=== PATIENT | male | born 1960 | race Caucasian/White ===

== ENCOUNTER 2017-10-20 17:30 | Emergency (ER) | payer OTHER ==
[~2017-10-20] VITALS: Ht 185.4 cm; Wt 77.1 kg
[~2017-10-20 17:30] MED LIST: AMLO5 PO; ASPI81CH PO; Cetirizine HCl10 MG PO; DULO60 PO; GABA300 PO; INSULANPEN SC; Lantus100 UNIT/1 SC; Lovastatin20 MG PO; Mobic15 MG PO; PIOG30 PO; Triamterene W/1 EACH PO; Zestril40 MG PO
[2017-10-20 18:00] LABS: Calcium, Ionized (POC) 1.27 mmol/L (1.10-1.46); Chloride (POC) 92 mmol/L (98-108); Creatinine (POC) 1.3 mg/dL (0.8-1.3); Glucose (ISTAT POC) 246 mg/dL (70-99); Potassium (POC) 4.9 mmol/L (3.5-5.5); Sodium (POC) 132 mmol/L (135-148); Total CO2 (POC) 30 mmol/L (21-32)
[2017-10-20 18:08] LABS: BASOPHILS ABSOLUTE AUTO 0.03 K/mm3 (0.00-0.23); BASOPHILS PERCENT AUTO 0 % (0-2); EOSINOPHILS ABSOLUTE AUTO 0.03 K/mm3 (0.00-0.68); EOSINOPHILS PERCENT AUTO 0 % (0-6); Hematocrit 41.7 % (37.0-53.0); Hemoglobin 13.7 g/dL (13.5-17.5); IMMATURE GRAN ABSOLUTE AUTO 0.04 K/mm3 (0.00-0.10); IMMATURE GRAN PERCENT AUTO 1 % (0-1); LYMPHOCYTES ABSOLUTE AUTO 1.66 K/mm3 (0.84-5.20); LYMPHOCYTES PERCENT AUTO 21 % (21-46); MONOCYTES ABSOLUTE AUTO 0.43 K/mm3 (0.16-1.47); MONOCYTES PERCENT AUTO 5 % (4-13); Mean Corpuscular HGB 31.7 pg (26.0-34.0); Mean Corpuscular HGB Conc 32.9 g/dL (31.5-36.5); Mean Corpuscular Volume 97 fL (80-100); Mean Platelet Volume 10.4 fL (9.1-12.4); NEUTROPHILS ABSOLUTE AUTO 5.89 K/mm3 (1.96-9.15); NEUTROPHILS PERCENT AUTO 73 % (41-73); Platelet Count 242 K/mm3 (150-400); RDW Coefficient Variation 13.1 % (11.7-14.2); RDW Standard Deviation 46.7 fL (35.1-46.3); Red Blood Cell Count 4.32 M/mm3 (4.30-5.90); White Blood Cell Count 8.08 K/mm3 (4.00-11.30)
[2017-10-20 18:29] LABS: Alanine Aminotransfer (ALT/SGP 28 U/L (12-78); Albumin, Blood 3.6 g/dL (3.4-5.0); Albumin/Globulin Ratio 0.9 (0.8-1.8); Alk Phos 70 U/L (50-136); Anion Gap 9 mmol/L (6-16); Aspartate Aminotrans (AST/SGOT 28 U/L (12-37); Bilirubin, Total 0.3 mg/dL (0.1-1.0); Blood Urea Nitrogen 37 mg/dL (8-24); Bun/Creatinine Ratio 32.5 (12.0-20.0); CO2, Blood 25 mmol/L (21-32); Calcium, Blood 9.5 mg/dL (8.5-10.1); Chloride, Blood 97 mmol/L (98-108); Creatinine, Blood 1.14 mg/dL (0.60-1.20); Ethanol (Alcohol), Blood, Med 53 mg/dL; Globulin, Blood 4.2 g/dL (2.2-4.0); Glomerular Filtration Rate >60 (60-); Glucose, Blood 239 mg/dL (70-99); Sodium, Blood 131 mmol/L (136-145); Total Protein, Blood 7.8 g/dL (6.4-8.2)
== END 2017-10-20 20:30 | disposition home or self-care (01) ==
LOC: ER 17:30
PROVIDERS: Emergency Medicine
DX: E09.649 Drug or chemical induced diabetes mellitus with hypoglycemia without coma (principal); T38.3X5A Adverse effect of insulin and oral hypoglycemic [antidiabetic] drugs, initial encounter; I10 Essential (primary) hypertension; Z91.14 Patient's other noncompliance with medication regimen; Z79.899 Other long term (current) drug therapy; Z79.82 Long term (current) use of aspirin; Z79.4 Long term (current) use of insulin
CPT/HCPCS: 71046; 80047; 80053; 82947; 85014; 85025; 93005; 93010; 96374; 99283; G0480

== ENCOUNTER → 2019-01-29 | Outpatient (CLI) | payer OTHER ==
[~2019-01-29] MED LIST changes: +ADMELOG SO100 UNIT/1 SC; +Aspirin EC81 MG PO; +HYDCHL12.5 PO; +LOSA50 PO; +MICROZIDE12.5 MG PO; +PIOG45 PO; +ROSU10TA PO
[2019-01-29 11:39] LABS: BASOPHILS ABSOLUTE AUTO 0.05 K/mm3 (0.00-0.23); BASOPHILS PERCENT AUTO 1 % (0-2); EOSINOPHILS ABSOLUTE AUTO 0.07 K/mm3 (0.00-0.68); EOSINOPHILS PERCENT AUTO 1 % (0-6); Hemoglobin 12.4 g/dL (13.5-17.5); IMMATURE GRAN ABSOLUTE AUTO 0.02 K/mm3 (0.00-0.10); IMMATURE GRAN PERCENT AUTO 0 % (0-1); LYMPHOCYTES ABSOLUTE AUTO 1.92 K/mm3 (0.84-5.20); LYMPHOCYTES PERCENT AUTO 33 % (21-46); MONOCYTES ABSOLUTE AUTO 0.55 K/mm3 (0.16-1.47); MONOCYTES PERCENT AUTO 9 % (4-13); Mean Corpuscular HGB 30.3 pg (26.0-34.0); Mean Corpuscular HGB Conc 33.5 g/dL (31.5-36.5); Mean Corpuscular Volume 91 fL (80-100); Mean Platelet Volume 9.7 fL (9.1-12.4); NEUTROPHILS ABSOLUTE AUTO 3.27 K/mm3 (1.96-9.15); NEUTROPHILS PERCENT AUTO 56 % (41-73); Platelet Count 291 K/mm3 (150-400); RDW Coefficient Variation 13.9 % (11.7-14.2); RDW Standard Deviation 45.9 fL (35.1-46.3); Red Blood Cell Count 4.09 M/mm3 (4.30-5.90); White Blood Cell Count 5.88 K/mm3 (4.00-11.30)
[2019-01-29 11:44] LABS: Bun/Creatinine Ratio 19.9 (12.0-20.0); Calcium, Blood 9.4 mg/dL (8.5-10.1); Creatinine, Blood 1.91 mg/dL (0.60-1.20)
== END | disposition home or self-care (01) ==
LOC: LAB SHORT 11:34 → LAB EV 11:34
PROVIDERS: Family Medicine
DX: E10.65 Type 1 diabetes mellitus with hyperglycemia (principal)
CPT/HCPCS: 80048; 85025

== ENCOUNTER 2019-02-15 13:09 | Day surgery (SDC) | payer OTHER ==
[~2019-02-15] VITALS: Ht 185.4 cm; Wt 70.7 kg
[~2019-02-15 13:09] MED LIST changes: -MICROZIDE12.5 MG PO
--- NOTE | 2019-02-15 15:50 | NUR ---
02/15/19 1550 Julia Ricketts 257 @ 1415. NOTIFIED, NO ORDERS AT THIS TIME.
--- NOTE | 2019-02-15 16:01 | NUR ---
02/15/19 1601 Julia Ricketts SIMETHICONE USED DURING PROCEDURE.
== END 2019-02-15 17:01 | disposition home or self-care (01) ==
LOC: ORSCSDS 13:09
PROVIDERS: Student in an Organized Health Care Education/Training Program
PROC: 0DB68ZX Excision of Stomach, Via Natural or Artificial Opening Endoscopic, Diagnostic (ICD-10-PCS; principal; 2019-02-15 14:45)
PROC: 0DBN8ZX Excision of Sigmoid Colon, Via Natural or Artificial Opening Endoscopic, Diagnostic (ICD-10-PCS; principal; 2019-02-15 14:45)
PROC: 0DB88ZX Excision of Small Intestine, Via Natural or Artificial Opening Endoscopic, Diagnostic (ICD-10-PCS; principal; 2019-02-15 14:45)
PROC: 0DBL8ZX Excision of Transverse Colon, Via Natural or Artificial Opening Endoscopic, Diagnostic (ICD-10-PCS; principal; 2019-02-15 14:45)
PROC: 0DBM8ZX Excision of Descending Colon, Via Natural or Artificial Opening Endoscopic, Diagnostic (ICD-10-PCS; principal; 2019-02-15 14:45)
PROC: 0DB48ZX Excision of Esophagogastric Junction, Via Natural or Artificial Opening Endoscopic, Diagnostic (ICD-10-PCS; principal; 2019-02-15 14:45)
PROC: 0DB58ZX Excision of Esophagus, Via Natural or Artificial Opening Endoscopic, Diagnostic (ICD-10-PCS; principal; 2019-02-15 14:45)
PROC: 0DBH8ZX Excision of Cecum, Via Natural or Artificial Opening Endoscopic, Diagnostic (ICD-10-PCS; principal; 2019-02-15 14:45)
DX: Z12.11 Encounter for screening for malignant neoplasm of colon (principal); K63.5 Polyp of colon; D12.0 Benign neoplasm of cecum; D12.4 Benign neoplasm of descending colon; R10.13 Epigastric pain; R93.3 Abnormal findings on diagnostic imaging of other parts of digestive tract; K29.70 Gastritis, unspecified, without bleeding; K64.8 Other hemorrhoids; E11.9 Type 2 diabetes mellitus without complications; I10 Essential (primary) hypertension; I73.9 Peripheral vascular disease, unspecified; F32.9 Major depressive disorder, single episode, unspecified; Z87.891 Personal history of nicotine dependence; Z79.82 Long term (current) use of aspirin; Z79.899 Other long term (current) drug therapy
CPT/HCPCS: 82947; 88305; 88312; 88342; J2704; J7120

== ENCOUNTER 2019-02-25 08:54 | Emergency (ER) | payer OTHER ==
[~2019-02-25] VITALS: Ht 185.4 cm; Wt 73.9 kg
== END 2019-02-25 10:50 | disposition home or self-care (01) ==
LOC: ER 08:54
DX: E11.649 Type 2 diabetes mellitus with hypoglycemia without coma (principal); E11.40 Type 2 diabetes mellitus with diabetic neuropathy, unspecified; Z91.14 Patient's other noncompliance with medication regimen; I10 Essential (primary) hypertension; Z88.8 Allergy status to other drugs, medicaments and biological substances; Z79.4 Long term (current) use of insulin; Z79.82 Long term (current) use of aspirin; Z79.899 Other long term (current) drug therapy
CPT/HCPCS: 82947; 99283

== ENCOUNTER 2019-04-15 06:38 | Day surgery (SDC) | payer OTHER ==
[~2019-04-15] VITALS: Ht 185.4 cm; Wt 73.2 kg
[2019-04-15] MEDS ORDERED: Mobic15 MG PO (07:04)
[2019-04-15] MEDS ORDERED: MICROZIDE12.5 MG PO (07:05)
[2019-04-15 07:55] LABS: BASOPHILS ABSOLUTE AUTO 0.04 K/mm3 (0.00-0.23); BASOPHILS PERCENT AUTO 1 % (0-2); EOSINOPHILS ABSOLUTE AUTO 0.08 K/mm3 (0.00-0.68); EOSINOPHILS PERCENT AUTO 1 % (0-6); Hematocrit 38.3 % (37.0-53.0); Hemoglobin 12.7 g/dL (13.5-17.5); IMMATURE GRAN ABSOLUTE AUTO 0.03 K/mm3 (0.00-0.10); IMMATURE GRAN PERCENT AUTO 0 % (0-1); LYMPHOCYTES ABSOLUTE AUTO 1.83 K/mm3 (0.84-5.20); LYMPHOCYTES PERCENT AUTO 23 % (21-46); MONOCYTES ABSOLUTE AUTO 0.61 K/mm3 (0.16-1.47); MONOCYTES PERCENT AUTO 8 % (4-13); Mean Corpuscular HGB 30.4 pg (26.0-34.0); Mean Corpuscular HGB Conc 33.2 g/dL (31.5-36.5); Mean Corpuscular Volume 92 fL (80-100); Mean Platelet Volume 10.3 fL (9.1-12.4); NEUTROPHILS ABSOLUTE AUTO 5.48 K/mm3 (1.96-9.15); NEUTROPHILS PERCENT AUTO 68 % (41-73); Platelet Count 304 K/mm3 (150-400); RDW Coefficient Variation 14.5 % (11.7-14.2); Red Blood Cell Count 4.18 M/mm3 (4.30-5.90); White Blood Cell Count 8.07 K/mm3 (4.00-11.30)
[2019-04-15 08:27] LABS: Anion Gap 6 mmol/L (6-16); Blood Urea Nitrogen 29 mg/dL (8-24); Bun/Creatinine Ratio 28.2 (12.0-20.0); CO2, Blood 30 mmol/L (21-32); Calcium, Blood 9.6 mg/dL (8.5-10.1); Chloride, Blood 98 mmol/L (98-108); Creatinine, Blood 1.03 mg/dL (0.60-1.20); Glomerular Filtration Rate >60 (60-); Glucose, Blood 399 mg/dL (70-99); Potassium, Blood 4.3 mmol/L (3.5-5.5); Sodium, Blood 134 mmol/L (136-145)
--- NOTE | 2019-04-15 11:20 | NUR ---
PT BACK TO RECOVERY ROOM POST PROCEDURE. SLEEPING, BUT ROUSES EASILY TO VERBAL STIMULI. BILATERAL GROIN SITES WITH TEGADERM DRESSINGS. RIGHT GROIN SITE WITH SMALL AMOUNT OF SWELLING NOTED, PER RT, PT HAD SMALL HEMATOMA DURING PROCEDURE, BUT HAS SINCE BEEN REDUCED. SWELLING IS SOFT AND NON TENDER. NO BLEEDING NOTED AT EITHER GROIN SITE. LEFT GROIN IS SOFT AND NON-TENDER.
--- NOTE | 2019-04-15 12:21 | NUR ---
Pt w/ fbs 246 orders received pt still sleeping will tx when pt starts to eat.
--- NOTE | 2019-04-15 13:01 | NUR ---
Pt given his fentanyl with good pain relief, pt also eating, insulin 4 units given for fbs of 246. Pain from 5 to 1 lower back pain.
--- NOTE | 2019-04-15 13:57 | NUR ---
Pt took his medications for blood pressure. Elevated b/p. Dr. Brito notified.
--- NOTE | 2019-04-15 14:52 | NUR ---
Dr. NAQVI HERE talking to patient regarding his findings. Pt verbalizes understand to see PCP and see about getting a change in antidepressant. Pt also given information regarding [facility] and [facility] information. Pt has elevated b/p he has taken his home medications. Slight pain in left groin site's bilaterally without hematoma or bleeding.
--- NOTE | 2019-04-15 14:59 | NUR ---
IV removed left ac cath intact.
== END 2019-04-15 23:58 | disposition home or self-care (01) ==
LOC: MHTC 06:38
PROVIDERS: Radiology Diagnostic Radiology
DX: I70.213 Atherosclerosis of native arteries of extremities with intermittent claudication, bilateral legs (principal)
CPT/HCPCS: 36200; 37229; 37232; 75625; 75716; 76937; 80048; 82947; 85025; 85347; 99152; 99153; C1714; C1725; C1769; C1887; C1894; J1644; J1815; J2250; J3010; J7030; Q9967

== ENCOUNTER 2019-12-10 01:31 | Day surgery (SDC) | payer OTHER ==
[~2019-12-10 01:31] MED LIST changes: +MICROZIDE12.5 MG PO
== END 2019-12-10 22:43 | disposition home or self-care (01) ==
LOC: WOUND 01:31
DX: E11.621 Type 2 diabetes mellitus with foot ulcer (principal); L03.032 Cellulitis of left toe; I10 Essential (primary) hypertension; L97.522 Non-pressure chronic ulcer of other part of left foot with fat layer exposed; Z87.891 Personal history of nicotine dependence; Z88.8 Allergy status to other drugs, medicaments and biological substances; Z79.4 Long term (current) use of insulin; Z79.899 Other long term (current) drug therapy
CPT/HCPCS: 87071; 87075; 87077; 87147; 87186; 87205; G0463

== ENCOUNTER 2019-12-16 12:08 | Day surgery (SDC) | payer OTHER ==
[~2019-12-16 12:08] MED LIST changes: -ADMELOG SO100 UNIT/1 SC; -Aspirin EC81 MG PO; -DULO60 PO; -GABA300 PO; -INSULANPEN SC; -LOSA50 PO; -MICROZIDE12.5 MG PO; -PIOG45 PO; -ROSU10TA PO
[2019-12-22] MEDS ORDERED: ADMELOG SO100 UNIT/2 SC (15:52)
== END 2019-12-16 22:56 | disposition home or self-care (01) ==
LOC: WOUND 12:08
DX: E11.621 Type 2 diabetes mellitus with foot ulcer (principal); L97.522 Non-pressure chronic ulcer of other part of left foot with fat layer exposed; L03.032 Cellulitis of left toe; I10 Essential (primary) hypertension
CPT/HCPCS: 85025; 85651; 96365; J0696

== ENCOUNTER 2019-12-31 08:45 | Inpatient (IN) | payer OTHER ==
[~2019-12-31] VITALS: Ht 185.4 cm; Wt 65.8 kg
[~2019-12-31 08:45] MED LIST changes: +ADMELOG SO100 UNIT/2 SC
[2019-12-31] MEDS ORDERED: AMOCLA875 PO (12:56)
[2019-12-31] MEDS ORDERED: BASAGLAR K100 UNIT/1 SC ×2 (12:57)
[2019-12-31] MEDS ORDERED: GABA300 PO (12:58)
[2019-12-31] MEDS ORDERED: DULO60 PO (12:58)
[2019-12-31] MEDS ORDERED: HYDR10 PO (12:58)
[2019-12-31] MEDS ORDERED: Mobic15 MG PO (12:59)
[2019-12-31] MEDS ORDERED: PIOG45 PO (12:59)
[2019-12-31] MEDS ORDERED: ROSU10TA PO (13:00)
[2019-12-31] MEDS ORDERED: MICROZIDE12.5 MG PO (13:00)
[2019-12-31] MEDS ORDERED: TAMS.4ER PO (13:00)
[2019-12-31] MEDS ORDERED: Aspirin EC81 MG PO (13:00)
[2019-12-31] MEDS ORDERED: HUMALOG KW100 UNIT/1 SC (13:00)
[2019-12-31] MEDS ORDERED: LOSA50 PO (13:00)
[2019-12-31] MEDS ORDERED: CENTRUM SILVER1 EAC2 PO (13:01)
[2019-12-31] MEDS ORDERED: ACET325 PO (13:01)
[2019-12-31] MEDS ORDERED: TRAM50 PO (13:01)
[2019-12-31] MEDS ORDERED: PROBIOTIC1 EA13 PO (13:02)
[2019-12-31] MEDS ORDERED: ONDA4ODT SL (13:02)
[2019-12-31 15:47] LABS: BASOPHILS ABSOLUTE AUTO 0.07 K/mm3 (0.00-0.23); BASOPHILS PERCENT AUTO 1 % (0-2); EOSINOPHILS ABSOLUTE AUTO 0.14 K/mm3 (0.00-0.68); EOSINOPHILS PERCENT AUTO 1 % (0-6); Hematocrit 28.1 % (37.0-53.0); Hemoglobin 8.7 g/dL (13.5-17.5); IMMATURE GRAN ABSOLUTE AUTO 0.03 K/mm3 (0.00-0.10); IMMATURE GRAN PERCENT AUTO 0 % (0-1); LYMPHOCYTES ABSOLUTE AUTO 1.82 K/mm3 (0.84-5.20); LYMPHOCYTES PERCENT AUTO 18 % (21-46); MONOCYTES PERCENT AUTO 8 % (4-13); Mean Corpuscular HGB 29.2 pg (26.0-34.0); Mean Corpuscular Volume 94 fL (80-100); Mean Platelet Volume 9.4 fL (9.1-12.4); NEUTROPHILS ABSOLUTE AUTO 7.15 K/mm3 (1.96-9.15); NEUTROPHILS PERCENT AUTO 71 % (41-73); Platelet Count 476 K/mm3 (150-400); RDW Coefficient Variation 14.6 % (11.7-14.2); RDW Standard Deviation 51.2 fL (35.1-46.3); Red Blood Cell Count 2.98 M/mm3 (4.30-5.90); White Blood Cell Count 10.01 K/mm3 (4.00-11.30)
[2019-12-31 16:04] LABS: Alanine Aminotransfer (ALT/SGP 28 U/L (12-78); Albumin, Blood 2.3 g/dL (3.4-5.0); Albumin/Globulin Ratio 0.5 (0.8-1.8); Alk Phos 111 U/L (50-136); Anion Gap 4 mmol/L (6-16); Aspartate Aminotrans (AST/SGOT 18 U/L (12-37); Bilirubin, Total 0.1 mg/dL (0.1-1.0); Blood Urea Nitrogen 33 mg/dL (8-24); CO2, Blood 31 mmol/L (21-32); Chloride, Blood 104 mmol/L (98-108); Creatinine, Blood 1.22 mg/dL (0.60-1.20); Globulin, Blood 4.2 g/dL (2.2-4.0); Glomerular Filtration Rate >60 (60-); Glucose, Blood 349 mg/dL (70-99); Potassium, Blood 4.9 mmol/L (3.5-5.5); Sodium, Blood 139 mmol/L (136-145); Total Protein, Blood 6.5 g/dL (6.4-8.2)
[2019-12-31 16:58] LABS: Source, Urine Clean Catch
[2019-12-31 17:01] LABS: Bilirubin, Urine Neg (Neg); Blood, Urine Neg (Neg); Glucose Qualitative, Urine 4+ (Neg); Ketones, Urine Neg (Neg); Leukocyte Esterase, Urine Neg (Neg); Nitrite, Urine Neg (Neg); Protein, Urine 2+ (Neg); Specific Gravity, Urine 1.015 (1.003-1.022); Urobilinogen, Urine NORM (Normal)
[2019-12-31 17:14] LABS: Appearance, Urine Clear (Clear); Color, Urine Yellow (P-Yellow); Red Blood Cells, Urine 0-2 /hpf (0-2); White Blood Cells, Urine Not Seen /hpf (0-5)
[2019-12-31 17:15] LABS: Bacteria Not Seen /hpf; Squamous Epithelial Cells Not Seen /hpf (Few)
--- NOTE | 2019-12-31 23:19 | NUR ---
PHONE CALL TO KEYONNA REGARDING CBG 378 WITH LANTUS 10 UNITS GIVEN.NO HS COVERAGE.ALSO PT C/O TRAMADOL AND SUBLIMAZE 12.5MCG INEFFECTIVE FOR PAIN CONTROL.KEYONNA ORDERED SUBLIMAZE DOSE INCREASED TO 25 MCG.NO CHANGE OF ORDERS REGARDING CBG.
[2020-01-01 03:55] LABS: Hematocrit 25.8 % (37.0-53.0); Hemoglobin 8.2 g/dL (13.5-17.5); Mean Corpuscular HGB 29.8 pg (26.0-34.0); Mean Corpuscular HGB Conc 31.8 g/dL (31.5-36.5); Mean Corpuscular Volume 94 fL (80-100); Mean Platelet Volume 9.1 fL (9.1-12.4); Platelet Count 428 K/mm3 (150-400); RDW Coefficient Variation 14.6 % (11.7-14.2); RDW Standard Deviation 49.3 fL (35.1-46.3); Red Blood Cell Count 2.75 M/mm3 (4.30-5.90); White Blood Cell Count 9.42 K/mm3 (4.00-11.30)
[2020-01-01 04:11] LABS: Anion Gap 2 mmol/L (6-16); Blood Urea Nitrogen 27 mg/dL (8-24); Bun/Creatinine Ratio 24.1 (12.0-20.0); CO2, Blood 33 mmol/L (21-32); Calcium, Blood 7.9 mg/dL (8.5-10.1); Chloride, Blood 103 mmol/L (98-108); Creatinine, Blood 1.12 mg/dL (0.60-1.20); Glomerular Filtration Rate >60 (60-); Glucose, Blood 205 mg/dL (70-99); Potassium, Blood 4.4 mmol/L (3.5-5.5); Sodium, Blood 138 mmol/L (136-145)
--- NOTE | 2020-01-01 06:59 | NUR ---
SUMMARY PT SLEPT OFF AND ON. REPORTS PAIN CONTROL IMPROVED WITH INCREASE IN SUBLIMAZE DOSE.
--- NOTE | 2020-01-01 09:08 | NUR ---
MEDICATED FOR PAIN, PT EATING BREAKFAST, TOLERATING WELL, SONALI WRAP TO LLE C/D/I, RLE W/ SONALI WRAP C/D/I, REPORTS HAVING NUMBNESS AND TINGLING ON BLE'S BUT NOT MORE THAN USUAL, REPORTS HAVING HX OF NEUROPATHY, MONITOR FOR ANY CHANGES, ASSESS FOR PAIN AND MEDICATE PRN.
--- NOTE | 2020-01-01 16:00 | NUR ---
TOLERATING PRBC TRANSFUSION WELL, LUNGS CLEAR, REPORTS PAIN IS TOLERABLE AT THIS TIME, 2ND PRBC TRANSFUSION CURRENTLY INFUSING.
--- NOTE | 2020-01-01 17:35 | NUR ---
VSS, PAIN TOLERABLE AT THIS TIME, HEELS FLOATED, REPOSITIONED IN BED, L FOOT DSG CHANGED BY DR. DUVAL TODAY, NO ACUTE CHANGES THIS SHIFT.
[2020-01-01 19:03] LABS: Hematocrit 31.1 % (37.0-53.0); Hemoglobin 9.9 g/dL (13.5-17.5)
--- NOTE | 2020-01-02 05:49 | NUR ---
SHIFT SUMMARY AA0X4. PT MEDICATED FOR PAIN X2. PT ABLE TO TRANSFER TO BS WITH MINIMAL ASSIST TO VOID. 1 BM. NPO SINCE MIDNIGHT PER ORDERS. PLAN IS FOR SURGERY TODAY. PT STATES HE IS LOOKING FORWARD TO GETTING HIS SURGERIES DONE.
--- NOTE | 2020-01-02 07:17 | NUR ---
PT TAKEN TO OR.
--- NOTE | 2020-01-02 12:18 | NUR ---
ARRIVED FROM PACU, S/P ORIF OF R TIBIAL PLATEAU AND L GREAT TOE AMPUTATION, PT IS DROWSY BUT A&O X3, DENIES ANY PAIN ON L FOOT, REPORTS HAVING "SOME" PAIN ON RLE, DACIA DSG AND SONALI WRAP NOTED ON RLE, C/D/I, SONALI AND GAUZE WRAP ON L FOOT C/D/I, DENIES ANY NAUSEA OR ANY NEW NUMBNESS OR TINGLING, CONT. TO MONITOR FOR ANY CHANGES, MEDICATE FOR PAIN ORDERED, ASSIST PRN.
--- NOTE | 2020-01-02 17:34 | NUR ---
summary RATES PAIN AT 3/10 AFTER FENTANYL GIVEN, PO PAIN MEDS CHANGED TO NORCO, HYPERTENSIVE POST OP, PT'S AM MEDS GIVEN POST OP AND PRN HYDRALAZINE, BP NOTED TRENDING DOWN, DENIES ANY OTHER DISCOMFORT, DSGS ON BLE'S C/D/I, VOIDED 1100CC'S POST OP, PT USING IS DIRECTED, NO ACUTE CHANGES THIS SHIFT.
[2020-01-03 04:20] LABS: BASOPHILS ABSOLUTE AUTO 0.03 K/mm3 (0.00-0.23); BASOPHILS PERCENT AUTO 0 % (0-2); EOSINOPHILS PERCENT AUTO 0 % (0-6); Hematocrit 28.9 % (37.0-53.0); Hemoglobin 9.4 g/dL (13.5-17.5); IMMATURE GRAN ABSOLUTE AUTO 0.04 K/mm3 (0.00-0.10); IMMATURE GRAN PERCENT AUTO 0 % (0-1); LYMPHOCYTES ABSOLUTE AUTO 2.24 K/mm3 (0.84-5.20); LYMPHOCYTES PERCENT AUTO 18 % (21-46); MONOCYTES ABSOLUTE AUTO 1.19 K/mm3 (0.16-1.47); MONOCYTES PERCENT AUTO 10 % (4-13); Mean Corpuscular HGB 29.4 pg (26.0-34.0); Mean Corpuscular HGB Conc 32.5 g/dL (31.5-36.5); Mean Corpuscular Volume 90 fL (80-100); Mean Platelet Volume 9.1 fL (9.1-12.4); NEUTROPHILS ABSOLUTE AUTO 8.86 K/mm3 (1.96-9.15); NEUTROPHILS PERCENT AUTO 72 % (41-73); Platelet Count 347 K/mm3 (150-400); RDW Coefficient Variation 14.6 % (11.7-14.2); RDW Standard Deviation 47.9 fL (35.1-46.3); White Blood Cell Count 12.36 K/mm3 (4.00-11.30)
[2020-01-03 04:41] LABS: Alanine Aminotransfer (ALT/SGP 20 U/L (12-78); Albumin/Globulin Ratio 0.5 (0.8-1.8); Alk Phos 76 U/L (50-136); Anion Gap 1 mmol/L (6-16); Aspartate Aminotrans (AST/SGOT 19 U/L (12-37); Bilirubin, Total 0.2 mg/dL (0.1-1.0); Blood Urea Nitrogen 20 mg/dL (8-24); Bun/Creatinine Ratio 22.1 (12.0-20.0); CO2, Blood 32 mmol/L (21-32); Calcium, Blood 8.3 mg/dL (8.5-10.1); Chloride, Blood 102 mmol/L (98-108); Creatinine, Blood 0.91 mg/dL (0.60-1.20); Globulin, Blood 3.9 g/dL (2.2-4.0); Glomerular Filtration Rate >60 (60-); Glucose, Blood 195 mg/dL (70-99); Potassium, Blood 4.2 mmol/L (3.5-5.5); Sodium, Blood 135 mmol/L (136-145); Total Protein, Blood 5.9 g/dL (6.4-8.2)
--- NOTE | 2020-01-03 05:47 | NUR ---
SHIFT SUMMARY LYING IN SEMI FOWLERS WITH EYES CLOSED. HAS RESTED WELL THIS SHIFT. DRESSINGS TO BLE ARE C/D/I. PT TO WORK WITH PT TODAY, RLE IS NON WEIGHT BEARING. PAIN MEDS GIVEN X3 THIS SHIFT, TOLERATED WELL. SAFETY MEASURES IN PLACE. WILL CONTINUE TO MONITOR AND GIVE HAND OFF TO ONCOMING SHIFT USING SBAR.
--- NOTE | 2020-01-03 11:06 | NUR ---
01/03/20 1106 Priya Richardson VERIFICATIONS: EDIT CHART.
--- NOTE | 2020-01-03 17:31 | NUR ---
SHIFT SUMMARY PT DID WELL TODAY WITH THERAPY. x 1 FOR IV BREAKTHRU PAIN. EATING, DRINKING, VOIDING WELL.
--- NOTE | 2020-01-04 04:05 | NUR ---
SHIFT SUMMARY: PT POD#2 FOR ORIF OF R ANKLE AND L GREAT TOE AMPUTATION. ALL DRESSINGS CDI. RLE ELEVATED WITH ICE PACK IN PLACE. PAIN MANAGED WITH 2 NORCO AND FENTANYL FOR BREAKTHROUGH. RATING PAIN 3/10 ON PAIN SCALE. VOIDING IN URINAL AT BEDSIDE. GRACIELA PO. NO CONCERNS AT THIS TIME.
--- NOTE | 2020-01-04 18:06 | NUR ---
SHIFT SUMMARY PT HAS DONE VERY WELL. UP IN CHAIR. PAIN WELL MANAGED. VOIDING, EATING, DRINKING.
--- NOTE | 2020-01-05 06:09 | NUR ---
SHIFT SUMMARY: PT POD #3 FOR ORIF TO RLE AND AMPUTATION TO L GREAT TOE. DRESSINGS TO BLE C/D/I. PT MEDICATED TWICE THIS SHIFT WITH PO PAIN MEDS PER EMAR. PT OUT OF BED TO BSC WITH ONE MINIMAL ASSIST. NWB TO RLE. WBAT TO LLE WITH BOOT. BOTH EXTREMITIES ELEVATED. USING ICE PACK INTERMITTENTLY. PT GRACIEAL ACTIVITY WELL. BM X1 THIS SHIFT. VOIDING WELL USING URINAL. CURRENTLY RESTING. AWAITING DISCHARGE PLAN.
--- NOTE | 2020-01-05 16:02 | NUR ---
SHIFT SUMMARY PT HAS DONE WELL TODAY. PAIN WELL CONTROLLED. INCREASING STRENGTH SLOWLY.
--- NOTE | 2020-01-06 07:18 | NUR ---
POD 4 S/P ORIF OF RLE AND LEFT GREAT TOE AMPUTATION. PT HAD NO SIG CHANGES T/O NIGHT, DRESSINGS CDI. PT STATES N/T AT BASELINE, PT DID REQ BREAKTHROUGH PAIN MED X1. PT DOING ROM EXERCISES WHILE IN BED, IS USING CALL LIGHT FOR ASSISTANCE. REP GIVEN TO DAY RN.
--- NOTE | 2020-01-06 08:15 | NUR ---
PT HAS AN ELEVATED BLOOD PRESSURE THIS MORNING. AM BP MEDICATIONS HAVE BEEN GIVEN. WILL CHECK BP AGAIN IN APPROXIMATELY 1 HOUR. PT IS ASYMPTOMATIC OF ELEVATED BP AT THIS TIME.
--- NOTE | 2020-01-06 18:49 | NUR ---
SHIFT SUMMARY PAIN HAS BEEN MANAGED WITH PO PAIN MEDICATION THIS SHIFT. PT IS A 1 PERSON ASSIST WITH GAIT BELT AND WALKER. PT IS TOLERATING PO. PAIN MANAGED WITH NORCO. VSS. WILL MONITOR UNTIL REPORT TO ONCOMING RN.
--- NOTE | 2020-01-07 06:39 | NUR ---
POD 5 S/P ROIF OF RLE AND LEFT GREAT TOE AMP. PT VSS T/O NIGHT. DRESSINGS CDI. LEFT TOE DRESSING CHANGED X1, SUTURES INTACT, NO REDNESS/SWELLING NOTED. PT UP OOB TO BATHROOM W/FWW+ORTHO SHOE, MAINTAINED NWB ON RLE, GRACIELA WELL. PT REP N/T AT BASELINE, CAP REFILL WNL. PT USING CALL LIGHT FOR ASSISTANCE, WILL CONT TO MONITOR UNTIL REP GIVEN TO ONCOMING RN.
--- NOTE | 2020-01-07 17:53 | NUR ---
SUMMARY PT REPORTS PAIN IS BETTER CONTROLLED THIS AFTERNOON. PT TEARFUL AT TIMES AND STATES HE IS FEARFUL OF NOT BEING ABLE TO WALK. DISCUSSED WITH PATIENT NEED TO BE NWB AT THIS TIME TO ALLOW BONES TO MEND AND THEN WILL BE ABLE TO RESUME AMBULATING. LEFT GREAT TOE DRESSING CLEAN, DRY AND INTACT
--- NOTE | 2020-01-08 04:40 | NUR ---
POD 6 S/P RIGHT TIB PLAT ORIF AND LEFT 1ST GREAT TOE AMP. BUT DID GREAT DURING NIGHT. SLEPT MOST OF SHIFT. PAIN WAS MANAGED WELL. KEPT BLE ELEVATED. PT ABLE TO REPOSITION SELF IN BED. DRESSINGS ARE CDI, GOOD CIRC CHECKS. CALL LIGHT IN REACH.
--- NOTE | 2020-01-08 16:39 | NUR ---
SHIFT SUMMARY PT A&OX4, VSS, POD6 ORIF PROX/PLATEAU TIBIA, PREVENA/SONALI WRAP DRY/INTACT; POD6 LEFT FOOT GREAT TOE AMP DRESSING CDI. PAIN MANAGED WITH 10 MG NORCO. GRACIELA PO. VOIDING WELL. WORKED WITH PHYSICAL THERAPY; UP TO CHAIR FOR A FEW HOURS THIS SHIFT; AMB W/FWW & SBA. WILL REPORT TO ONCOMING PATTIE RN.
--- NOTE | 2020-01-09 04:30 | NUR ---
NO SIG CHANGES DURING NIGHT. TOLERATES BIPAP HOWEVER DOES HAVE AN ISSUE WITH THE MASK FIT. NEEDED TO BE READJUSTED MULTIPLE TIMES TO MAINTAIN PRESSURE. DID TITRATE TO 9L O2 BLEED. PT HAS BEEN UP AMBULATING TO BR AND TOLERATES THAT WELL WITH MIN SOB. CALL LIGHT IN REACH.
--- NOTE | 2020-01-09 04:33 | NUR ---
POD 7 S/P RIGHT TIB ORIF AND LEFT GREAT TOE AMP. PT DID GREAT DURING NIGHT. HAS BEEN UP AMBULATING WITH JUST SBA WITH WALKER AND NWB ON RIGHT LE AND BOOT ON LEFT FOOT. PAIN IS MANAGED WELL. DRESSINGS CDI, CIRC CHECKS WNL. PLAN FOR DC HOME ON FRIDAY WITH HH. CALL LIGHT IN REACH.
--- NOTE | 2020-01-10 04:13 | NUR ---
SHIFT SUMMARY PT IS A/O X4, SBA TO BATHROOM. PT REPOSITIONS SELF IN BED. PAIN MANAGED WITH PO PAIN MED PER ORDERS PRN. DACIA DRESSING TO R LEG WAS CHANGED THIS SHIFT ORIGINAL DACIA BROKE. PT VOIDING, TOLERATING PO INTAKE. NO ACUTE CHANGES.
--- NOTE | 2020-01-10 10:13 | NUR ---
PT TEARFUL SAD ABOUT BEING ALONE AT HOME; DISCUSSED W/DR BROWNE. PT DECLINED OFFER TO HAVE QUESTIONED DOCUMENTS EXAMINER VISIT. CALL LIGHT IN REACH. DENIES ANY NEEDS.
[2020-01-10] MEDS ORDERED: DOCU100 PO (11:31)
[2020-01-10] MEDS ORDERED: HYDR1TAB94 PO (11:32)
[2020-01-10] MEDS ORDERED: MIRALAX17 GM PO (11:33)
--- NOTE | 2020-01-10 15:05 | NUR ---
DRESSINGS CHANGED DRESSING TO L FOOT PER WOUND CARE ORDERS. SPOKE TO LESTER DE LUNA REGARDING DACIA DRESSING TO RLE. OKAY TO LEAVE IN PLACE UNTIL F/U SINCE IT WAS CHANGED LAST NIGHT. PT SITTING UP IN CHAIR. DENIES ANY NEEDS. CALL LIGHT IN REACH.
--- NOTE | 2020-01-10 17:02 | NUR ---
SUMMARY NO ACUTE CHANGES T/O SHIFT. PT TEARFUL THIS AM DUE TO LONELINESS. DECLINED OFFER TO CALL LEARNING SUPPORT SERVICES DIRECTOR FOR VISIT. MOOD SEEMS IMPROVED THIS AFTERNOON. MEDICATED TWICE DURING SHIFT PER ORDERS FOR PAIN. PT DOES WELL MAINTAINING NONWB STATUS TO RLE USING FWW. CHANGED DRESSING TO L FOOT PER ORDERS. COVERED CBG PER ORDERS. CALL LIGHT IN REACH.
--- NOTE | 2020-01-10 18:18 | NUR ---
DISCHARGED REVIEWED DC PAPERWORK W/PT. VERBALIZED UNDERSTANDING. PT LEFT UNIT W/HOME MEDS, PRESCRIPTION, POSSESSIONS AND DC PAPERWORK IN HAND. LEFT IN WC VIA TRANSPORT.
== END 2020-01-10 18:15 | disposition home health service (06) | DRG 493 ==
LOC: ER 08:45 → SURS 13:21 → MEDS 13:21 → SURS 15:04
PROVIDERS: Orthopaedic Surgery; Podiatrist Foot & Ankle Surgery; ADMIT Family Medicine
PROC: 0QSG04Z Reposition Right Tibia with Internal Fixation Device, Open Approach (ICD-10-PCS; principal; 2020-01-02 07:00)
PROC: 0Y6Q0Z0 Detachment at Left 1st Toe, Complete, Open Approach (ICD-10-PCS; 2020-01-02 07:00)
PROC: 30233N1 Transfusion of Nonautologous Red Blood Cells into Peripheral Vein, Percutaneous Approach (ICD-10-PCS; 2020-01-03)
DX: S82.121A Displaced fracture of lateral condyle of right tibia, initial encounter for closed fracture (principal); E11.52 Type 2 diabetes mellitus with diabetic peripheral angiopathy with gangrene; I96 Gangrene, not elsewhere classified; M86.172 Other acute osteomyelitis, left ankle and foot; D62 Acute posthemorrhagic anemia; W19.XXXA Unspecified fall, initial encounter; E11.69 Type 2 diabetes mellitus with other specified complication; Z79.4 Long term (current) use of insulin; E78.5 Hyperlipidemia, unspecified; I12.9 Hypertensive chronic kidney disease with stage 1 through stage 4 chronic kidney disease, or unspecified chronic kidney disease; E11.22 Type 2 diabetes mellitus with diabetic chronic kidney disease; N18.2 Chronic kidney disease, stage 2 (mild); F41.8 Other specified anxiety disorders; N40.0 Benign prostatic hyperplasia without lower urinary tract symptoms; Z87.891 Personal history of nicotine dependence; Z90.5 Acquired absence of kidney; M47.22 Other spondylosis with radiculopathy, cervical region; Z85.528 Personal history of other malignant neoplasm of kidney
CPT/HCPCS: 36415; 36430; 73590; 73610; 73700; 80048; 80053; 81001; 82947; 85014; 85018; 85025; 85027; 86140; 86850; 86900; 86901; 86923; 88305; 88311; 93005; 93010; 97110; 97116; 97116-CQ; 97162; 97530; 99285-25; A9270-GY; C1713; C1769; J0360; J0690; J1100; J1644; J1650; J1940; J2250; J2370; J2405; J2704; J3010; J7030; P9016; U0002

== ENCOUNTER 2020-02-22 07:08 | Day surgery (SDC) | payer OTHER ==
[~2020-02-22 07:08] MED LIST changes: +ACET325 PO; +AMOCLA875 PO; +Aspirin EC81 MG PO; +BASAGLAR K100 UNIT/1 SC; +CENTRUM SILVER1 EAC2 PO; +DOCU100 PO; +DULO60 PO; +GABA300 PO; +HUMALOG KW100 UNIT/1 SC; +HYDR10 PO; +HYDR1TAB94 PO; +LOSA50 PO; +MICROZIDE12.5 MG PO; +MIRALAX17 GM PO; +ONDA4ODT SL; +PIOG45 PO; +PROBIOTIC1 EA13 PO; +ROSU10TA PO; +TAMS.4ER PO; +TRAM50 PO
== END 2020-02-22 22:39 | disposition home or self-care (01) ==
LOC: WOUND 07:08
DX: E11.621 Type 2 diabetes mellitus with foot ulcer (principal); L97.529 Non-pressure chronic ulcer of other part of left foot with unspecified severity; E11.40 Type 2 diabetes mellitus with diabetic neuropathy, unspecified; E11.22 Type 2 diabetes mellitus with diabetic chronic kidney disease; I12.9 Hypertensive chronic kidney disease with stage 1 through stage 4 chronic kidney disease, or unspecified chronic kidney disease; N18.9 Chronic kidney disease, unspecified; Z89.412 Acquired absence of left great toe; Z88.8 Allergy status to other drugs, medicaments and biological substances; Z87.891 Personal history of nicotine dependence; Z79.899 Other long term (current) drug therapy; Z79.4 Long term (current) use of insulin
CPT/HCPCS: G0463

== ENCOUNTER 2020-02-29 00:39 | Day surgery (SDC) | payer OTHER | END 2020-02-29 22:38 | disposition home or self-care (01) | LOC: WOUND 00:39 | DX: T87.54 Necrosis of amputation stump, left lower extremity (principal); E11.621 Type 2 diabetes mellitus with foot ulcer; L97.521 Non-pressure chronic ulcer of other part of left foot limited to breakdown of skin; E11.52 Type 2 diabetes mellitus with diabetic peripheral angiopathy with gangrene; I96 Gangrene, not elsewhere classified; I12.9 Hypertensive chronic kidney disease with stage 1 through stage 4 chronic kidney disease, or unspecified chronic kidney disease; E11.22 Type 2 diabetes mellitus with diabetic chronic kidney disease; N18.9 Chronic kidney disease, unspecified; E11.40 Type 2 diabetes mellitus with diabetic neuropathy, unspecified; F32.9 Major depressive disorder, single episode, unspecified; Z88.8 Allergy status to other drugs, medicaments and biological substances; Z89.412 Acquired absence of left great toe; Z79.4 Long term (current) use of insulin; Z79.82 Long term (current) use of aspirin; Z79.899 Other long term (current) drug therapy; Y83.5 Amputation of limb(s) as the cause of abnormal reaction of the patient, or of later complication, without mention of misadventure at the time of the procedure ==

== ENCOUNTER 2020-03-27 14:20 | Observation (INO) | payer OTHER ==
[~2020-03-27] VITALS: Ht 188 cm; Wt 63.5 kg
[2020-03-27 15:21] LABS: BASOPHILS ABSOLUTE AUTO 0.03 K/mm3 (0.00-0.23); BASOPHILS PERCENT AUTO 0 % (0-2); EOSINOPHILS ABSOLUTE AUTO 0.06 K/mm3 (0.00-0.68); EOSINOPHILS PERCENT AUTO 1 % (0-6); Hematocrit 40.8 % (37.0-53.0); Hemoglobin 13.3 g/dL (13.5-17.5); IMMATURE GRAN ABSOLUTE AUTO 0.01 K/mm3 (0.00-0.10); IMMATURE GRAN PERCENT AUTO 0 % (0-1); LYMPHOCYTES PERCENT AUTO 30 % (21-46); MONOCYTES ABSOLUTE AUTO 0.53 K/mm3 (0.16-1.47); MONOCYTES PERCENT AUTO 7 % (4-13); Mean Corpuscular HGB 29.8 pg (26.0-34.0); Mean Corpuscular HGB Conc 32.6 g/dL (31.5-36.5); Mean Corpuscular Volume 91 fL (80-100); Mean Platelet Volume 10.6 fL (9.1-12.4); NEUTROPHILS ABSOLUTE AUTO 4.74 K/mm3 (1.96-9.15); NEUTROPHILS PERCENT AUTO 62 % (41-73); Platelet Count 261 K/mm3 (150-400); RDW Coefficient Variation 14.3 % (11.7-14.2); RDW Standard Deviation 47.9 fL (35.1-46.3); Red Blood Cell Count 4.47 M/mm3 (4.30-5.90); White Blood Cell Count 7.67 K/mm3 (4.00-11.30)
[2020-03-27 15:47] LABS: Alanine Aminotransfer (ALT/SGP 32 U/L (12-78); Albumin, Blood 3.5 g/dL (3.4-5.0); Albumin/Globulin Ratio 0.9 (0.8-1.8); Alk Phos 119 U/L (50-136); Anion Gap 7 mmol/L (6-16); Aspartate Aminotrans (AST/SGOT 16 U/L (12-37); Bilirubin, Total 0.3 mg/dL (0.1-1.0); Blood Urea Nitrogen 23 mg/dL (8-24); Bun/Creatinine Ratio 23.8 (12.0-20.0); CO2, Blood 28 mmol/L (21-32); Calcium, Blood 9.7 mg/dL (8.5-10.1); Chloride, Blood 99 mmol/L (98-108); Creatinine, Blood 0.97 mg/dL (0.60-1.20); Ethanol (Alcohol), Blood, Med <3 mg/dL; Free Thyroxine 1.18 ng/dL (0.70-1.60); Globulin, Blood 3.9 g/dL (2.2-4.0); Glomerular Filtration Rate >60 (60-); Glucose, Blood 419 mg/dL (70-99); Potassium, Blood 4.5 mmol/L (3.5-5.5); Salicylate 2.7 mg/dL (2.8-20.0); Sodium, Blood 134 mmol/L (136-145); Total Protein, Blood 7.4 g/dL (6.4-8.2)
[2020-03-27 15:52] LABS: Acetaminophen, Random <2.0 ug/mL (10.0-30.0)
[2020-03-27 18:19] LABS: Source, Urine Clean Catch
[2020-03-27 18:28] LABS: Appearance, Urine Clear (Clear); Bilirubin, Urine Neg (Neg); Blood, Urine Neg (Neg); Color, Urine Yellow (P-Yellow); Glucose Qualitative, Urine 4+ (Neg); Ketones, Urine 2+ (Neg); Leukocyte Esterase, Urine Neg (Neg); Nitrite, Urine Neg (Neg); Protein, Urine 3+ (Neg); Urobilinogen, Urine NORM (Normal)
[2020-03-27 18:51] LABS: U Amphetamine Screen Not Detected; U Barbituate Screen Not Detected; U Benzodiazapine Screen Not Detected; U Buprenorphine Screen Not Detected; U Cannabinoids Screen DETECTED; U Cocaine Screen Not Detected; U Methadone Screen Not Detected; U Methamphetamine Screen Not Detected; U Opiates Screen Not Detected; U Oxycodone Screen Not Detected; U Phencyclidine Screen Not Detected; U Propoxyphene Screen Not Detected
[2020-03-27 18:53] LABS: Bacteria Rare /hpf; Red Blood Cells, Urine Not Seen /hpf (0-2); Squamous Epithelial Cells Rare /hpf (Few); White Blood Cells, Urine Rare /hpf (0-5)
[2020-03-28] MEDS ORDERED: BUPR100ER PO (11:55)
== END 2020-03-30 15:45 | disposition home or self-care (01) ==
LOC: ER 14:20 → EOR 14:21
PROVIDERS: ADMIT Emergency Medicine
DX: F33.2 Major depressive disorder, recurrent severe without psychotic features (principal); F17.200 Nicotine dependence, unspecified, uncomplicated; R45.851 Suicidal ideations; I12.9 Hypertensive chronic kidney disease with stage 1 through stage 4 chronic kidney disease, or unspecified chronic kidney disease; E11.22 Type 2 diabetes mellitus with diabetic chronic kidney disease; N18.2 Chronic kidney disease, stage 2 (mild); E11.40 Type 2 diabetes mellitus with diabetic neuropathy, unspecified; E11.69 Type 2 diabetes mellitus with other specified complication; M86.9 Osteomyelitis, unspecified; E11.51 Type 2 diabetes mellitus with diabetic peripheral angiopathy without gangrene; E11.42 Type 2 diabetes mellitus with diabetic polyneuropathy; G89.29 Other chronic pain; M54.12 Radiculopathy, cervical region; Z88.8 Allergy status to other drugs, medicaments and biological substances; Z79.82 Long term (current) use of aspirin; Z79.4 Long term (current) use of insulin; Z79.899 Other long term (current) drug therapy; Z90.5 Acquired absence of kidney
CPT/HCPCS: 36415; 73562-RT; 80053; 81001; 82947; 84439; 84443; 85025; 99285; A9270-GY; G0378; G0480; J1815; Q3014

== ENCOUNTER 2020-11-07 14:56 | Inpatient (IN) | payer OTHER ==
[~2020-11-07] VITALS: Ht 185.4 cm; Wt 57.5 kg
[~2020-11-07 14:56] MED LIST changes: +BUPR100ER PO; -GABA300 PO; -TAMS.4ER PO
[2020-11-07 15:21] LABS: BASOPHILS ABSOLUTE AUTO 0.03 K/mm3 (0.00-0.23); BASOPHILS PERCENT AUTO 1 % (0-2); EOSINOPHILS PERCENT AUTO 0 % (0-6); Hematocrit 41.7 % (37.0-53.0); Hemoglobin 13.5 g/dL (13.5-17.5); IMMATURE GRAN ABSOLUTE AUTO 0.05 K/mm3 (0.00-0.10); IMMATURE GRAN PERCENT AUTO 1 % (0-1); LYMPHOCYTES ABSOLUTE AUTO 0.93 K/mm3 (0.84-5.20); LYMPHOCYTES PERCENT AUTO 16 % (21-46); MONOCYTES ABSOLUTE AUTO 0.27 K/mm3 (0.16-1.47); MONOCYTES PERCENT AUTO 5 % (4-13); Mean Corpuscular HGB 30.3 pg (26.0-34.0); Mean Corpuscular HGB Conc 32.4 g/dL (31.5-36.5); Mean Corpuscular Volume 94 fL (80-100); Mean Platelet Volume 10.4 fL (9.1-12.4); NEUTROPHILS ABSOLUTE AUTO 4.59 K/mm3 (1.96-9.15); NEUTROPHILS PERCENT AUTO 78 % (41-73); Platelet Count 346 K/mm3 (150-400); RDW Coefficient Variation 13.1 % (11.7-14.2); RDW Standard Deviation 44.9 fL (35.1-46.3); Red Blood Cell Count 4.45 M/mm3 (4.30-5.90); White Blood Cell Count 5.87 K/mm3 (4.00-11.30)
[2020-11-07 15:34] LABS: Troponin I <0.015 ng/mL (0.000-0.040)
[2020-11-07 15:38] LABS: Source, Urine Clean Catch
[2020-11-07 15:44] LABS: Bilirubin, Urine Neg (Neg); Blood, Urine 2+ (Neg); Glucose Qualitative, Urine 4+ (Neg); Ketones, Urine 2+ (Neg); Leukocyte Esterase, Urine Neg (Neg); Nitrite, Urine Neg (Neg); Protein, Urine 3+ (Neg); Urobilinogen, Urine NORM (Normal); pH, Urine 6.5 (5.0-8.0)
[2020-11-07 15:51] LABS: Alanine Aminotransfer (ALT/SGP 60 U/L (12-78); Albumin, Blood 2.6 g/dL (3.4-5.0); Albumin/Globulin Ratio 0.7 (0.8-1.8); Alk Phos 244 U/L (50-136); Anion Gap 10 mmol/L (6-16); Aspartate Aminotrans (AST/SGOT 53 U/L (12-37); Bilirubin, Total 0.3 mg/dL (0.1-1.0); Blood Urea Nitrogen 21 mg/dL (8-24); Bun/Creatinine Ratio 22.4 (12.0-20.0); CO2, Blood 27 mmol/L (21-32); Chloride, Blood 86 mmol/L (98-108); Creatinine, Blood 0.94 mg/dL (0.60-1.20); Globulin, Blood 3.7 g/dL (2.2-4.0); Glomerular Filtration Rate >60 (60-); Glucose, Blood 993 mg/dL (70-99); Potassium, Blood 4.6 mmol/L (3.5-5.5); Sodium, Blood 123 mmol/L (136-145); Total Protein, Blood 6.3 g/dL (6.4-8.2)
[2020-11-07 16:03] LABS: Appearance, Urine Clear (Clear); Color, Urine Pale Yellow (P-Yellow)
[2020-11-07 16:05] LABS: Bacteria Mod /hpf; Red Blood Cells, Urine 0-2 /hpf (0-2); Squamous Epithelial Cells Rare /hpf (Few); White Blood Cells, Urine 0-2 /hpf (0-5)
[2020-11-07 16:22] LABS: Base Excess Venous 4.6 mmol/L; Bicarbonate Venous 27.3 mmol/L (24.0-30.0); PCO2 Venous 52.5 mmHg (38-42); pH Blood Venous 7.36 (7.34-7.37)
[2020-11-07 19:05] LABS: Glucose, Blood 567 mg/dL (70-99)
--- NOTE | 2020-11-07 20:00 | NUR ---
ASSUMED CARE OF PT AT 1915. REPORT RECEIVED AT BEDSIDE. PT PRESENTS IN BED. ALERT AND SOMEWHAT WITHDRAWN. PT WILL HOLD CONVERSATION WHEN ADDRESSED. DOES HAVE SOME WORD SEARCHING. ON INSULIN DRIP AT 5 UNITS PER HOUR. WILL TITRATE DOWN ABLE. WILL REVIEW CHART AND PLAN OF CARE FOR THIS PT.
[2020-11-07 20:01] LABS: Glucose, Blood 438 mg/dL (70-99)
[2020-11-07 22:33] LABS: Anion Gap 3 mmol/L (6-16); Blood Urea Nitrogen 18 mg/dL (8-24); Bun/Creatinine Ratio 19.8 (12.0-20.0); CO2, Blood 32 mmol/L (21-32); Calcium, Blood 7.8 mg/dL (8.5-10.1); Chloride, Blood 100 mmol/L (98-108); Creatinine, Blood 0.91 mg/dL (0.60-1.20); Glomerular Filtration Rate >60 (60-); Glucose, Blood 279 mg/dL (70-99); Potassium, Blood 3.4 mmol/L (3.5-5.5); Sodium, Blood 135 mmol/L (136-145)
--- NOTE | 2020-11-08 01:21 | NUR ---
PT CURRENTLY OFF INSULIN DRIP. HAS RECEIVED SEMLEE DOSE. PT HAS ASSISTED IN COMPLETING ADMIT. PT STATES HE HAD STOPPED TAKING ALL HIS MEDICATION IN MARCH BECAUSE HE DID NOT "WANT TO LIVE ANYMORE." PT DENIES S.I. NO PLANS TO HARM HIMSELF. DOES ELECT TO BE FULL CODE. "I DON'T KNOW WHY." BUT CONTINUES TO BE FULL CODE. PT ALSO ADDS THAT THE ONLY TWO MEDICATIONS THAT HE HAS CONTINUED TO TAKE IS HIS NEURONTIN AND FLOMAX ALL OTHERS HE STOPPED.
[2020-11-08 03:48] LABS: BASOPHILS ABSOLUTE AUTO 0.03 K/mm3 (0.00-0.23); BASOPHILS PERCENT AUTO 0 % (0-2); EOSINOPHILS ABSOLUTE AUTO 0.01 K/mm3 (0.00-0.68); EOSINOPHILS PERCENT AUTO 0 % (0-6); Hematocrit 34.8 % (37.0-53.0); Hemoglobin 12.1 g/dL (13.5-17.5); IMMATURE GRAN ABSOLUTE AUTO 0.02 K/mm3 (0.00-0.10); IMMATURE GRAN PERCENT AUTO 0 % (0-1); LYMPHOCYTES ABSOLUTE AUTO 3.09 K/mm3 (0.84-5.20); LYMPHOCYTES PERCENT AUTO 35 % (21-46); MONOCYTES ABSOLUTE AUTO 0.67 K/mm3 (0.16-1.47); MONOCYTES PERCENT AUTO 8 % (4-13); Mean Corpuscular HGB 31.3 pg (26.0-34.0); Mean Corpuscular HGB Conc 34.8 g/dL (31.5-36.5); Mean Corpuscular Volume 90 fL (80-100); NEUTROPHILS ABSOLUTE AUTO 5.08 K/mm3 (1.96-9.15); NEUTROPHILS PERCENT AUTO 57 % (41-73); Platelet Count 317 K/mm3 (150-400); RDW Standard Deviation 42.9 fL (35.1-46.3); Red Blood Cell Count 3.86 M/mm3 (4.30-5.90)
[2020-11-08 04:02] LABS: Anion Gap 4 mmol/L (6-16); Blood Urea Nitrogen 17 mg/dL (8-24); Bun/Creatinine Ratio 19.5 (12.0-20.0); CO2, Blood 27 mmol/L (21-32); Calcium, Blood 7.5 mg/dL (8.5-10.1); Chloride, Blood 106 mmol/L (98-108); Creatinine, Blood 0.87 mg/dL (0.60-1.20); Glomerular Filtration Rate >60 (60-); Glucose, Blood 203 mg/dL (70-99); Potassium, Blood 4.3 mmol/L (3.5-5.5); Sodium, Blood 137 mmol/L (136-145)
--- NOTE | 2020-11-08 07:15 | NUR ---
PT MAINTAINS OFF INSULIN DRIP. HAS VOIDED Q.S. MAIN COMPLAINT IS A HEADACHE THAT HE RATES 6/10. MEDICATED WITH 650 MG TYLENOL, AND AND ADDITIONAL 325MG PENDING RESULTS. PT HAS BEEN UP TO BEDSIDE COMMODE AND HAD LARGE BM. NEEDS MINIMINAL ASSIST. WILL CONTINUE TO MONITOR PT, AND WILL REPORT OFF TO ONCOMING RN.
--- NOTE | 2020-11-08 07:24 | NUR ---
ASSUMED CARE RECEIVED REPORT FROM REGINO GRIFFITHS. PT SLEEPING IN BED, VSS. SINUS RHYTHM RATE 80-90s, SBP < 160, MAP > 65. ON ROOM AIR WITH SPO2 94%+. BED LOW AND LOCKED. CALL LIGHT WITHIN RANGE.
--- NOTE | 2020-11-08 17:17 | NUR ---
Spiritual care note: Mr. Berkowitz appears quite frail. He is slow to speak and a bit mentally muddled. He says he was never , no children. His father is 84 and debilitated living in [place]. 2 sisters out of state. he says he feels very alone. When asked about his suicidal statements he tells me that "if I were to , no one would notice or care." He appears very alone, stating he has no friends and little contact with his dad. Mr. Berkowitz doesn't drive, has no car, and "no one to help." He [place] been living [place], but is not a vet. He tells me that those who are not veterans can only live on [place] property for 2 years. His 2 years is up in a few months. This concerns him as well. He also states that he does not want "to live in a wheelchair." He seems bewildered as to how he became so frail and does not understand "what's going on with" his hands, arms, and legs, and feet. He is very distressed with the thought of requiring help. I provided theraputic listening and gentle emotional affirmation. Prayer provided. We had an easy rapport. I will remain avaialble.
--- NOTE | 2020-11-08 18:46 | NUR ---
PT ARRIVED FROM ICU TO ROOM 214. PT IS ALERT, ORIENTED AND PLEASANT. CALL LIGHT WITHIN REACH. FLUIDS PROVIDED. WILL MONITOR UNTIL REPORT TO NOC RN.
--- NOTE | 2020-11-09 04:40 | NUR ---
SHIFT SUMMARY LYING IN LOW FOWLERS WITH EYES CLOSED, HAS RESTED WELL THIS SHIFT. AAO X4, CARRERA, FOLLOWS ALL COMMANDS. BGL WAS ELEVAED LAST HS, MEDICATED PER EMAR. NO FURTHER CHANGES NOTED THIS SHIFT. DENIES FURTHER NEEDS AT THIS TIME. SAFETY MEASURES IN PLACE. WILL CONTINUE TO MONITOR AND ADDRESS CHANGES AND NEEDS THEY ARISE. WILL GIVE HAND OFF TO ONCOMING SHIFT USING SBAR DURING BEDSIDE REPORT.
[2020-11-09 04:47] LABS: BASOPHILS ABSOLUTE AUTO 0.04 K/mm3 (0.00-0.23); BASOPHILS PERCENT AUTO 1 % (0-2); EOSINOPHILS ABSOLUTE AUTO 0.05 K/mm3 (0.00-0.68); EOSINOPHILS PERCENT AUTO 1 % (0-6); Hematocrit 34.9 % (37.0-53.0); Hemoglobin 11.8 g/dL (13.5-17.5); IMMATURE GRAN ABSOLUTE AUTO 0.02 K/mm3 (0.00-0.10); IMMATURE GRAN PERCENT AUTO 0 % (0-1); LYMPHOCYTES ABSOLUTE AUTO 3.23 K/mm3 (0.84-5.20); LYMPHOCYTES PERCENT AUTO 45 % (21-46); MONOCYTES ABSOLUTE AUTO 0.56 K/mm3 (0.16-1.47); MONOCYTES PERCENT AUTO 8 % (4-13); Mean Corpuscular HGB 31.1 pg (26.0-34.0); Mean Corpuscular HGB Conc 33.8 g/dL (31.5-36.5); Mean Corpuscular Volume 92 fL (80-100); NEUTROPHILS ABSOLUTE AUTO 3.36 K/mm3 (1.96-9.15); NEUTROPHILS PERCENT AUTO 46 % (41-73); Platelet Count 300 K/mm3 (150-400); RDW Coefficient Variation 13.3 % (11.7-14.2); RDW Standard Deviation 45.3 fL (35.1-46.3); White Blood Cell Count 7.26 K/mm3 (4.00-11.30)
[2020-11-09 05:23] LABS: Alanine Aminotransfer (ALT/SGP 32 U/L (12-78); Albumin, Blood 1.9 g/dL (3.4-5.0); Albumin/Globulin Ratio 0.7 (0.8-1.8); Alk Phos 134 U/L (50-136); Anion Gap 4 mmol/L (6-16); Aspartate Aminotrans (AST/SGOT 14 U/L (12-37); Bilirubin, Total 0.2 mg/dL (0.1-1.0); Blood Urea Nitrogen 18 mg/dL (8-24); CO2, Blood 27 mmol/L (21-32); Calcium, Blood 8.3 mg/dL (8.5-10.1); Chloride, Blood 103 mmol/L (98-108); Globulin, Blood 2.8 g/dL (2.2-4.0); Glomerular Filtration Rate >60 (60-); Glucose, Blood 114 mg/dL (70-99); Sodium, Blood 134 mmol/L (136-145); Total Protein, Blood 4.7 g/dL (6.4-8.2)
--- NOTE | 2020-11-09 17:53 | NUR ---
SUMMARY PT SITTIN UP IN CHAIR MUCH OF SHIFT. PT PLEASANT, COOPERATIVE, FORGETFUL-HAS DIFFICULTY REMEMBERING BIRTHDAY AND LIVING SITUATION PRIOR TO HOSPITAL. PT REPORTS PAINFUL HANDS AND FEET WHICH IS HIS BASELINE. PT AMBULATED TO RESTROOM WITH WALKER AND 1 PERSON ASSIST. PT HAS DIFFICULTY ARISING FROM CHAIR OR TOILET BUT ABLE TO AMBULATE ONCE UPRIGHT
--- NOTE | 2020-11-10 04:43 | NUR ---
SHIFT SUMMARY LYING IN LOW FOWLERS WITH EYES CLOSED, HAS RESTED WELL THIS SHIFT. AAO X4, CARRERA, FOLLOWS ALL COMMANDS. HAS BEEN PLEASANT AND COOPERATIVE WITH CARE. NO FURTHER CHANGES NOTED THIS SHIFT. DENIES FURTHER NEEDS AT THIS TIME. SAFETY MEASURES IN PLACE. WILL CONTINUE TO MONITOR AND ADDRESS CHANGES AND NEEDS THEY ARISE. WILL GIVE HAND OFF TO ONCOMING SHIFT USING SBAR DURING BEDSIDE REPORT.
--- NOTE | 2020-11-10 12:43 | NUR ---
PT TELLS ME HE IS AFRAID HE "WILL BE GETTING A LETTER ANYDAY" INFORMING HIM THAT HE WILL HAVE TO LEAVE DUE TO HIS 2 YEARS OF HOUSING LIMIT IN APARTMENT HE CURRENTLY LIVES IN. WITH FURTHER DISCUSSION PT TELLS ME HE HAS UNTIL DEC THAT HE CAN STAY IN CURRENT APARTMENT. PT TELLS ME HE HAS A SOIL FIELD TECHNICIAN- ENCOURAGED PATIENT TO CONTACT HIS SOIL FIELD TECHNICIAN TO DISCUSS IF HE QUALIFIES FOR IN HOME CARE SERVICES OR ANY ASSISTANCE WITH HOUSING PLACEMENT
--- NOTE | 2020-11-10 14:59 | NUR ---
1455 DISCHARGED VIA WHEELCHAIR TRANSPORT TO RETURN TO APARTMENT. PT VERBALIZES UNDERSTANDING OF DISCHARGE INSTRUCTIONS. REINFORCED WITH PATIENT IMPORTANCE OF FOLLOWING UP WITH PCP. PT IS AGREEABLE TO HOME HEALTH AND AWARE THAT [facility] WILL BE FOLLOWING UP POST DISCHARGE. WALKER FOR PATIENT DELIVERD TO HIS ROOM AND SENT WITH PATIENT WHEN DISCHARGED.
[2021-01-01] MEDS ORDERED: KETO10 PO (08:01)
[2021-01-01] MEDS ORDERED: PRED20 PO (08:01)
[2021-01-01] MEDS ORDERED: Voltaren100 GM TOP (08:01)
== END 2020-11-10 15:21 | disposition home or self-care (01) | DRG 638 ==
LOC: ER 14:56 → ICUW 17:29 → SURS 11-08 18:17
PROVIDERS: Nurse Practitioner Acute Care; Physician Assistant; ADMIT Internal Medicine
DX: E11.01 Type 2 diabetes mellitus with hyperosmolarity with coma (principal); Z68.1 Body mass index [BMI] 19.9 or less, adult; E44.0 Moderate protein-calorie malnutrition; Z66 Do not resuscitate; E11.22 Type 2 diabetes mellitus with diabetic chronic kidney disease; E11.40 Type 2 diabetes mellitus with diabetic neuropathy, unspecified; I12.9 Hypertensive chronic kidney disease with stage 1 through stage 4 chronic kidney disease, or unspecified chronic kidney disease; Z90.5 Acquired absence of kidney; Z87.891 Personal history of nicotine dependence; Z79.4 Long term (current) use of insulin; N18.2 Chronic kidney disease, stage 2 (mild); Z89.412 Acquired absence of left great toe; Z91.14 Patient's other noncompliance with medication regimen; F32.9 Major depressive disorder, single episode, unspecified
CPT/HCPCS: 36415; 70450; 71045; 80048; 80053; 81001; 82803; 82947; 83605; 83690; 83735; 84443; 84484; 85025; 87086; 92507; 92523; 93005; 93010; 97110; 97116; 97162; 97530; 99285-25; A9270; J0360; J1650; J1815; J1885; J2405; J3480; J7030

== ENCOUNTER 2020-11-18 04:00 | Emergency (ER) | payer OTHER ==
[~2020-11-18] VITALS: Ht 182.9 cm; Wt 68.0 kg
[2020-11-18 04:45] LABS: BASOPHILS ABSOLUTE AUTO 0.03 K/mm3 (0.00-0.23); BASOPHILS PERCENT AUTO 0 % (0-2); EOSINOPHILS PERCENT AUTO 0 % (0-6); Hematocrit 40.7 % (37.0-53.0); Hemoglobin 14.2 g/dL (13.5-17.5); IMMATURE GRAN ABSOLUTE AUTO 0.07 K/mm3 (0.00-0.10); IMMATURE GRAN PERCENT AUTO 1 % (0-1); LYMPHOCYTES PERCENT AUTO 12 % (21-46); MONOCYTES ABSOLUTE AUTO 0.59 K/mm3 (0.16-1.47); MONOCYTES PERCENT AUTO 5 % (4-13); Mean Corpuscular HGB 31.6 pg (26.0-34.0); Mean Corpuscular HGB Conc 34.9 g/dL (31.5-36.5); Mean Corpuscular Volume 90 fL (80-100); Mean Platelet Volume 10.3 fL (9.1-12.4); NEUTROPHILS PERCENT AUTO 82 % (41-73); Platelet Count 423 K/mm3 (150-400); RDW Coefficient Variation 12.8 % (11.7-14.2); RDW Standard Deviation 42.2 fL (35.1-46.3); White Blood Cell Count 11.09 K/mm3 (4.00-11.30)
[2020-11-18 05:00] LABS: Osmolality, Serum 313 mos/KG (275-300)
[2020-11-18 05:03] LABS: Beta-hydroxybutyrate 38.1 mg/dL (0.2-2.8); Ethanol (Alcohol), Blood, Med <3 mg/dL; Magnesium, Blood 2.3 mg/dL (1.6-2.4)
[2020-11-18 05:04] LABS: Base Excess Venous 2.5 mmol/L; Bicarbonate Venous 25.7 mmol/L (24.0-30.0); PCO2 Venous 48.6 mmHg (38-42); PO2 Venous 63.8 mmHg (38-42); pH Blood Venous 7.37 (7.34-7.37)
[2020-11-18 05:06] LABS: Alanine Aminotransfer (ALT/SGP 46 U/L (12-78); Albumin, Blood 2.5 g/dL (3.4-5.0); Albumin/Globulin Ratio 0.7 (0.8-1.8); Alk Phos 184 U/L (50-136); Anion Gap 12 mmol/L (6-16); Aspartate Aminotrans (AST/SGOT 16 U/L (12-37); Bilirubin, Total 0.4 mg/dL (0.1-1.0); Blood Urea Nitrogen 30 mg/dL (8-24); Bun/Creatinine Ratio 34.5 (12.0-20.0); CO2, Blood 27 mmol/L (21-32); Calcium, Blood 8.5 mg/dL (8.5-10.1); Chloride, Blood 87 mmol/L (98-108); Creatinine, Blood 0.87 mg/dL (0.60-1.20); Globulin, Blood 3.8 g/dL (2.2-4.0); Glomerular Filtration Rate >60 (60-); Glucose, Blood 651 mg/dL (70-99); Potassium, Blood 4.3 mmol/L (3.5-5.5); Sodium, Blood 126 mmol/L (136-145); Total Protein, Blood 6.3 g/dL (6.4-8.2)
[2020-11-18 05:57] LABS: Source, Urine Clean Catch
[2020-11-18 05:59] LABS: Bilirubin, Urine Neg (Neg); Blood, Urine 2+ (Neg); Glucose Qualitative, Urine 4+ (Neg); Ketones, Urine 3+ (Neg); Leukocyte Esterase, Urine Neg (Neg); Nitrite, Urine Neg (Neg); Protein, Urine 4+ (Neg); Specific Gravity, Urine 1.015 (1.003-1.022); Urobilinogen, Urine NORM (Normal)
[2020-11-18 06:08] LABS: Appearance, Urine Clear (Clear); Color, Urine Yellow (P-Yellow)
[2020-11-18 06:09] LABS: Bacteria Not Seen /hpf; Red Blood Cells, Urine 0-2 /hpf (0-2); Squamous Epithelial Cells Few /hpf (Few); White Blood Cells, Urine Not Seen /hpf (0-5)
[2020-11-18 06:15] LABS: U Amphetamine Screen Not Detected; U Barbituate Screen Not Detected; U Benzodiazapine Screen Not Detected; U Buprenorphine Screen Not Detected; U Cannabinoids Screen DETECTED; U Cocaine Screen Not Detected; U Methadone Screen Not Detected; U Methamphetamine Screen Not Detected; U Opiates Screen Not Detected; U Oxycodone Screen Not Detected; U Phencyclidine Screen Not Detected; U Propoxyphene Screen Not Detected
[2020-11-18 07:40] LABS: Glucose, Blood 505 mg/dL (70-99)
[2020-11-18] MEDS ORDERED: BUPR100ER PO (12:35)
[2020-11-18] MEDS ORDERED: HUMALOG KW100 UNIT/1 SC (12:35)
[2020-11-18] MEDS ORDERED: DULO60 PO (12:35)
[2020-11-18] MEDS ORDERED: Aspirin EC81 MG PO (12:35)
[2020-11-18] MEDS ORDERED: HYDR10 PO (12:35)
[2020-11-18] MEDS ORDERED: BASAGLAR K100 UNIT/1 SC (12:35)
[2020-11-18] MEDS ORDERED: ROSU10TA PO (12:35)
[2020-11-18] MEDS ORDERED: LOSA50 PO (12:35)
[2021-01-01] MEDS ORDERED: PRED20 PO (08:01)
[2021-01-01] MEDS ORDERED: Voltaren100 GM TOP (08:01)
[2021-01-01] MEDS ORDERED: KETO10 PO (08:01)
== END 2020-11-18 13:26 | disposition home or self-care (01) ==
LOC: ER 04:00
PROVIDERS: Emergency Medicine
DX: E11.65 Type 2 diabetes mellitus with hyperglycemia (principal); I10 Essential (primary) hypertension; Z91.14 Patient's other noncompliance with medication regimen; Z79.899 Other long term (current) drug therapy; Z79.4 Long term (current) use of insulin; Z79.82 Long term (current) use of aspirin
CPT/HCPCS: 36415; 80053; 81001; 82010; 82803; 82947; 83735; 83930; 85025; 96361; 96374; 99284-25; A9270; G0480; J1815; J2405; J7030; J7120

== ENCOUNTER 2020-11-21 10:11 | Observation (INO) | payer OTHER ==
[~2020-11-21] VITALS: Ht 180.3 cm; Wt 51.2 kg
[2020-11-21 11:06] LABS: BASOPHILS ABSOLUTE AUTO 0.03 K/mm3 (0.00-0.23); BASOPHILS PERCENT AUTO 0 % (0-2); EOSINOPHILS ABSOLUTE AUTO 0.03 K/mm3 (0.00-0.68); EOSINOPHILS PERCENT AUTO 0 % (0-6); Hematocrit 41.2 % (37.0-53.0); Hemoglobin 13.9 g/dL (13.5-17.5); IMMATURE GRAN ABSOLUTE AUTO 0.06 K/mm3 (0.00-0.10); IMMATURE GRAN PERCENT AUTO 1 % (0-1); LYMPHOCYTES ABSOLUTE AUTO 1.53 K/mm3 (0.84-5.20); LYMPHOCYTES PERCENT AUTO 16 % (21-46); MONOCYTES ABSOLUTE AUTO 0.51 K/mm3 (0.16-1.47); MONOCYTES PERCENT AUTO 5 % (4-13); Mean Corpuscular HGB 31.1 pg (26.0-34.0); Mean Corpuscular HGB Conc 33.7 g/dL (31.5-36.5); Mean Corpuscular Volume 92 fL (80-100); Mean Platelet Volume 10.1 fL (9.1-12.4); NEUTROPHILS ABSOLUTE AUTO 7.36 K/mm3 (1.96-9.15); NEUTROPHILS PERCENT AUTO 77 % (41-73); Platelet Count 335 K/mm3 (150-400); RDW Standard Deviation 43.8 fL (35.1-46.3); Red Blood Cell Count 4.47 M/mm3 (4.30-5.90); White Blood Cell Count 9.52 K/mm3 (4.00-11.30)
[2020-11-21 11:41] LABS: Acetaminophen, Random <2.0 ug/mL (10.0-30.0); Alanine Aminotransfer (ALT/SGP 43 U/L (12-78); Albumin, Blood 2.2 g/dL (3.4-5.0); Albumin/Globulin Ratio 0.6 (0.8-1.8); Alk Phos 158 U/L (50-136); Anion Gap 7 mmol/L (6-16); Aspartate Aminotrans (AST/SGOT 29 U/L (12-37); Bilirubin, Total 0.3 mg/dL (0.1-1.0); Blood Urea Nitrogen 25 mg/dL (8-24); Bun/Creatinine Ratio 27.2 (12.0-20.0); CO2, Blood 28 mmol/L (21-32); Calcium, Blood 8.1 mg/dL (8.5-10.1); Chloride, Blood 93 mmol/L (98-108); Creatinine, Blood 0.92 mg/dL (0.60-1.20); Ethanol (Alcohol), Blood, Med <3 mg/dL; Globulin, Blood 3.4 g/dL (2.2-4.0); Glomerular Filtration Rate >60 (60-); Glucose, Blood 596 mg/dL (70-99); Potassium, Blood 4.2 mmol/L (3.5-5.5); Salicylate 1.8 mg/dL (2.8-20.0); Sodium, Blood 128 mmol/L (136-145); Thyroxine (T4) 7.9 ug/dL (4.5-12.1); Total Protein, Blood 5.6 g/dL (6.4-8.2)
[2020-11-21 13:12] LABS: Bicarbonate Venous 28.9 mmol/L (24.0-30.0); PCO2 Venous 47.3 mmHg (38-42); pH Blood Venous 7.42 (7.34-7.37)
[2020-11-21 13:13] LABS: Source, Urine Clean Catch
[2020-11-21 13:26] LABS: Appearance, Urine Clear (Clear); Bilirubin, Urine Neg (Neg); Blood, Urine 1+ (Neg); Color, Urine Yellow (P-Yellow); Glucose Qualitative, Urine 4+ (Neg); Ketones, Urine 2+ (Neg); Leukocyte Esterase, Urine Neg (Neg); Nitrite, Urine Neg (Neg); Protein, Urine 4+ (Neg); Urobilinogen, Urine NORM (Normal); pH, Urine 6.5 (5.0-8.0)
[2020-11-21 13:57] LABS: U Amphetamine Screen Not Detected; U Barbituate Screen Not Detected; U Benzodiazapine Screen Not Detected; U Cocaine Screen Not Detected; U Methadone Screen Not Detected; U Methamphetamine Screen Not Detected
[2020-11-21 13:58] LABS: U Buprenorphine Screen Not Detected; U Cannabinoids Screen DETECTED; U Opiates Screen Not Detected; U Oxycodone Screen Not Detected; U Phencyclidine Screen Not Detected; U Propoxyphene Screen Not Detected
[2020-11-21 14:29] LABS: Bacteria Few /hpf; Red Blood Cells, Urine Not Seen /hpf (0-2); Squamous Epithelial Cells Rare /hpf (Few); White Blood Cells, Urine Rare /hpf (0-5)
[2020-11-21] MEDS ORDERED: BASAGLAR K100 UNIT/1 SC (14:58)
[2020-11-21] MEDS ORDERED: MIRALAX17 GM PO (15:00)
[2020-11-21] MEDS ORDERED: BUPR100ER PO (15:00)
[2020-11-21] MEDS ORDERED: ROSU10TA PO (15:00)
[2020-11-21] MEDS ORDERED: DULO60 PO (15:00)
[2020-11-21] MEDS ORDERED: Aspirin EC81 MG PO (15:00)
[2020-11-21] MEDS ORDERED: HYDR10 PO (15:01)
[2020-11-21] MEDS ORDERED: DOCU100 PO (15:01)
[2020-11-21] MEDS ORDERED: LOSA50 PO (15:01)
--- NOTE | 2020-11-21 20:58 | NUR ---
REPORT RECIEVED AT 2054 AND AWAITING PT T/F TO ROOM 353.
[2020-11-22 05:29] LABS: BASOPHILS ABSOLUTE AUTO 0.02 K/mm3 (0.00-0.23); BASOPHILS PERCENT AUTO 0 % (0-2); EOSINOPHILS ABSOLUTE AUTO 0.08 K/mm3 (0.00-0.68); EOSINOPHILS PERCENT AUTO 1 % (0-6); Hematocrit 33.9 % (37.0-53.0); Hemoglobin 11.4 g/dL (13.5-17.5); IMMATURE GRAN ABSOLUTE AUTO 0.02 K/mm3 (0.00-0.10); IMMATURE GRAN PERCENT AUTO 0 % (0-1); LYMPHOCYTES ABSOLUTE AUTO 2.59 K/mm3 (0.84-5.20); LYMPHOCYTES PERCENT AUTO 33 % (21-46); MONOCYTES ABSOLUTE AUTO 0.44 K/mm3 (0.16-1.47); MONOCYTES PERCENT AUTO 6 % (4-13); Mean Corpuscular HGB 30.9 pg (26.0-34.0); Mean Corpuscular HGB Conc 33.6 g/dL (31.5-36.5); Mean Corpuscular Volume 92 fL (80-100); NEUTROPHILS ABSOLUTE AUTO 4.69 K/mm3 (1.96-9.15); NEUTROPHILS PERCENT AUTO 60 % (41-73); Platelet Count 257 K/mm3 (150-400); RDW Coefficient Variation 13.1 % (11.7-14.2); RDW Standard Deviation 44.2 fL (35.1-46.3); Red Blood Cell Count 3.69 M/mm3 (4.30-5.90); White Blood Cell Count 7.84 K/mm3 (4.00-11.30)
--- NOTE | 2020-11-22 05:43 | NUR ---
T/F AND SUMMARY: REPORT RECIEVED FROM EMBEDDED SOFTWARE MANAGER (PILLO MONTANEZ) AT 2056 AND PT T/F'D VIA GURNEY TO ROOM 353 AT 2110. PT'S ROOM PREPARED FOR MODERATE SI RISK AND PRECAUTIONS IMPLEMENTED W/CAMERA MONITORING IN PLACE. HE'S A/OX4 AND SPECIFIES NEEDS BUT ADMITS TO NEW MEMORY ISSUES W/BED ALARM ON FOR FALL RISK AND POSS IMPULSIVITY. HE'S 1PA TO [facility] AND DESCRIBES BEING W/C BOUND AT HOME D/T WEAKNESS, INABILITY TO STAND W/O HUNCHING OR TOLERATE WALKING DISTANCES. PT IS PIVOT T/F TO [facility] W/1PA. HE HAD MULTIPLE EPISODES OF DIARRHEA IN ER THAT CONT'D UPON ARRIVAL TO FLOOR. IMMODIUM WAS RX'D AND RECIEVED FOR SOME IMPROVEMENT. NS COMMENCED AT 100 ML/HR FOR LOW NA LEVEL IN ER. PT ADMITS TO HAVING QUIT TAKING ALL HOME MEDS W/EXCEPTION TO FLOMAX AND GABAPENTIN "MONTHS AGO". HE DENIES THIS BEING A DIRECT ATTEMPT AT SELF HARM BUT RATHER "D/T BEING TIRED OF FEELING SICK W/NO IMPROVEMENTS AND MEDS NOT WORKING". HE DENIES A PLAN OR ACTION TO END HIS LIFE BUT DESCRIBES A DESIRE TO "NO LONGER BE A BURDEN TO ANYONE ELSE". HE STATES HE "JUST WANTS FOR ALL THIS TO BE OVER AND HAS NO REASON TO GET HEALTHY OR LIVE ANY LONGER". HE EXPRESSES "NOT WANTING ANY MORE CARE, HELP OR MEDS" AND THAT HE'D "BE HAPPY TO TONIGHT". UFF TO BE CONSULTED THIS AM W/TELEPSYCH RECOMMENDING INPATIENT PSYCH. IT IS QUESTIONABLE WHETHER PT WILL WANT OR AGREE TO THIS BUT 2MD HOLD IS CURRENTLY IN PLACE. HE ACCEPTED RX'D MEDS THIS SHIFT AND DENIED COMPLAINTS. INSULIN RECIEVED FOR HYPERGLYCEMIA. HE APPEARS VERY THIN, FRAIL AND ADMITES TO GRADUAL WT.LOSS RESULT OF FOOD NOT BEING READILY AVAILABLE. PT ENJOYED HIS MEAL IN ER THOUGH [facility] IF THIS UPSET HIS STOMACH. WILL DISCUSS POSS NEED FOR DIET MODIFICATION. VSS/AFEBRILE, NO ACUTE CHANGES. WCTM AND REPORT TO DAY RN.
[2020-11-22 05:48] LABS: Alanine Aminotransfer (ALT/SGP 33 U/L (12-78); Albumin, Blood 1.7 g/dL (3.4-5.0); Albumin/Globulin Ratio 0.6 (0.8-1.8); Alk Phos 136 U/L (50-136); Anion Gap 5 mmol/L (6-16); Aspartate Aminotrans (AST/SGOT 18 U/L (12-37); Bilirubin, Total 0.1 mg/dL (0.1-1.0); Blood Urea Nitrogen 17 mg/dL (8-24); Bun/Creatinine Ratio 21.7 (12.0-20.0); CO2, Blood 29 mmol/L (21-32); Calcium, Blood 7.4 mg/dL (8.5-10.1); Chloride, Blood 101 mmol/L (98-108); Creatinine, Blood 0.79 mg/dL (0.60-1.20); Globulin, Blood 2.7 g/dL (2.2-4.0); Glomerular Filtration Rate >60 (60-); Glucose, Blood 218 mg/dL (70-99); Potassium, Blood 3.2 mmol/L (3.5-5.5); Sodium, Blood 135 mmol/L (136-145); Total Protein, Blood 4.4 g/dL (6.4-8.2)
--- NOTE | 2020-11-22 14:29 | NUR ---
SUICIDE REASSESSMENT: PATIENT DENIES SUICIDAL IDEA OR PLAN AT THIS TIME. PATIENT REPORTS THAT HE "NEVER HAD A PLAN". PATIENT IS TAKING HIS MEDICAITONS AND PARTICIPATING IN CARE. PATIENT IS EATING ALL OF HIS MEALS. PATIENT REPORTS THAT HE WOULD LIKE TO GO TO A [facility].
--- NOTE | 2020-11-22 17:55 | NUR ---
Spiritual care note: Mr. Scott was very focused on paying his credit card bill over the phone with another credit card. He was having trouble navigating complicated phone tree with company. I tried to help him make this call. He did not want to talk about anything else. "I always pay my bills on time and this is due today." Once I got him connected to a human being, I left room.
--- NOTE | 2020-11-22 18:42 | NUR ---
END OF SHIFT SUMMARY: PATIENT WAS CALM AND COOPERATIVE THROUGHOUT THE SHIFT. THIS MORNING, THE PATIENT WAS TEARFUL AT TIMES. HE DENIED SUICIDAL IDEA OR IDEAS OF SELF HARM. AFTER HIS CONVERSATION WITH DR. NAQVI AND LAN ENGINEER RN, LAUREL, THE PATIENT REPORTED THAT HE IS FEELING BETTER. THE PATIENT AGREES THAT MUCH OF HIS DEPRESSION IS RELATED TO HIS LIVING SITUATION. PATIENT REPORTS THAT HE DOES NOT WANT TO GO BACK TO HIS APARTMENT AND THAT HE WOULD LIKE TO LIVE IN A INTERMEDIATE CARE FACILITY SETTING. BY THE END OF THE AFTERNOON, THE PATIENT WAS SMILING AND LAUGHING WITH STAFF. PATIENT REPORTS THAT HE LIKES THE IDEA OF PALLIATIVE CARE AND THAT HE WANTS HIS CARE TO BE FOCUSED ON HIS COMFORT AND NOT AGGRESSIVE MEASURES. RN NOTED THAT A PALLIATIVE CONSULT HAS BEEN ORDERED. PATIENT HAS AN EXCELLENT APPETITE. PATIENT WAS ABLE TO WALK TO THE BATHROOM WITH A FWW AND 2 STAFF MEMBERS PROVIDING MIN ASSIST. PATIENT REPORTS THAT THE MOBILITY IN HIS HANDS HAS IMPROVED THROUGHOUT THE DAY. PATIENT REPORTS THAT HE BELIEVES THIS IS BECAUSE WHILE IN THE HOSPITAL HE HAS BEEN ON A SCHEDULE FOR SLEEP, MEDICATIONS, AND FOOD. DR. CANTOR WAS ABLE TO ROUND ON THE PATIENT THIS EVENING. DISCUSSED THE PATIENT'S PROGRESS THROUGHOUT THE DAY.
--- NOTE | 2020-11-22 22:13 | NUR ---
PATIENT ALERT AND ORIENTED. NO SUIDICAL IDEATION AT THIS TIME. REPORTS HE WANTS TO GET TO SLEEP EARLY. CALL LIGHT IN REACH. BED ALARM ACTIVATED.
--- NOTE | 2020-11-23 04:08 | NUR ---
SHIFT SUMMARY PATIENT HAD NO ACUTE CHANGES OBSERVED. AXO X 3 AND ONE ASSIST WITH FWW TO BATHROOM. LOW SUICIDE PRECAUTIONS. NO SUICIDAL IDEATION OBSERVED. PIV REMAINS INTACT. CBG 175 AND ON ROOM AIR. DENIES PAIN, SOB, AND N/V. VSS/AFEBRILE. COOPERATIVE WITH CARE. WATCHED TV MID SHIFT REPORTING WENT TO BED TOO EARLY. CALL LIGHT IN REACH. BED IN LOWEST POSITION. WILL CONTINUE TO MONITOR UNTIL DAY SHIFT NURSE ASSUMES CARE.
--- NOTE | 2020-11-23 07:26 | NUR ---
CONFIRMED WITH REMOTE MONITOR, RUPERTO TOPETE THAT PT IS VISIBLE.
--- NOTE | 2020-11-23 17:07 | NUR ---
SHIFT SUMMARY PT OFFERED TO GET UP INTO CHAIR FOR EACH MEAL TODAY. PT DECLINED OFFER EACH TIME. PT USING URINAL AT BEDSIDE. CALL LIGHT IN REACH. NO ACUTE CHANGES IN ASSESSMENT AT THIS TIME. VS REVIEWED. PT INTERVIEWED BY JEANA OWEN TODAY. DISCHARGE PLANNING WORKING ON A SAFE DC.
--- NOTE | 2020-11-24 03:54 | NUR ---
SHIFT SUMMARY PATIENT HAD NO ACUTE CHANGES OBSERVED. LOW SUICIDAL PRECAUTIONS WITH NO IDEATION THIS SHIFT. AXOX 3 AND ONE ASSIST TO BSC. FORGETFUL AT TIMES. LETHARGIC AT SHIFT CHANGE VS LAST NOC SHIFT. USES URINAL AT BEDSIDE. PIV REMAINS INTACT. CBG 183. TAKES MEDICATION 3-4 AT A TIME WITH WATER. ON ROOM AIR. DENIES PAIN, SOB, AND N/V. VSS/AFEBRILE. COOPERATIVE WITH CARE. CALL LIGHT IN REACH. BED IN LOWEST POSITION AND ALARM ACTIVATED. WILL CONTINUE TO MONITOR UNTIL DAY SHIFT NURSE ASSUMES CARE.
--- NOTE | 2020-11-24 09:00 | NUR ---
PT BP HIGH 160/105 P 88, HAD AIDE RETAKE. WHEN SITTING , ONLY 95/69 P 69 HAD ORTHO VITALS DONE. 155/99, 126/87, 89/63. CALLED DR NAQVI, ORDERS FOR 1 L L/R AND RETAKE ORTHO VITALS.
--- NOTE | 2020-11-24 09:30 | NUR ---
PT PLEASANT COOP A/O SOME TEARFUL. DENIES PAIN. H/R REG, NO MURMER NOTED. NO TELE . LUNGS CLEAR, RESP EASY, UNLABORED. ON R.A. BT X4 LAST BM YEST PER PT. HEAVY URINATOR. VOIDS URINAL. 1 ASST WITH FWW AND GAIT BELT. BED IN LOW POSITION, CALL LITE IN REACH, BED ALARM ON FOR SAFETY. UNSTEADY ON FEET.
--- NOTE | 2020-11-24 12:21 | NUR ---
[address] NAQVI RE ORTHO. 196/120, 176/106, 143/85. AFTER 1L FLUID. OKAYED GIVE AM COZAAR. DONE. ALSO CHANGED FLAT 5 U HUMALOG TO MED S/S. DONE
--- NOTE | 2020-11-24 12:41 | NUR ---
SPOKE TO DR DRISS CABRAL. NOW AT [address] NAQVI REQUEST REDUCE TO 600MG TID. DONE
--- NOTE | 2020-11-24 14:25 | NUR ---
REPORTED ORTHO VITALS TO . NO NEW ORDERS AT THIS TIME.
--- NOTE | 2020-11-24 18:30 | NUR ---
PT SHOWS POSITIVE FOR ORTHOSTATIC VITALS. DISCUSSED WITH DR 3 TIMES TODAY. HE IS OBSERVING TODAY FOR FURTHER ADJUSTMENTS TOMORROW. ADJUSTED INSULIN TODAY TO MED SCALE. NO NEW CONCERNS NOTED THIS AFT. BED IN LOW POSITION, CALL LITE IN REACH,BED ALARM ON FOR SAFETY
--- NOTE | 2020-11-25 04:20 | NUR ---
patient slept well overnight. very pleasant and stated he was feeling "much better" last night. Sonia said he has been having bouts of depression quite frequently over the last few years. Twice overnight, patient complained of feet (especially left) felt like they were on fire. Fell asleep after tylenol. No apparent suicidal ideation noted during conversations with patent
--- NOTE | 2020-11-25 09:58 | NUR ---
CALLED DR DRISS LOZANO AND B/PRESSURES. DOSE CHANGING TO 12.5 DONE
--- NOTE | 2020-11-25 16:51 | NUR ---
DISCHARGE REVIEWED WITH PT, HE VERBALIZED UNDERSTANDING. STATES HAS GIVEN SELF INSULIN SHOTS FOR YEARS. HANDED MEDIUM S/S SHEET. REVIEWED. IV PULLED INTACT. NO TELE . PT WHEELED TO DOOR BY TRANSPORT AT 1640
[2021-01-01] MEDS ORDERED: KETO10 PO (08:01)
[2021-01-01] MEDS ORDERED: PRED20 PO (08:01)
[2021-01-01] MEDS ORDERED: Voltaren100 GM TOP (08:01)
== END 2020-11-25 16:39 | disposition home or self-care (01) ==
LOC: ER 10:11 → EOR 10:12 → MEDS 10:12
PROVIDERS: Internal Medicine; ADMIT Emergency Medicine
DX: F33.3 Major depressive disorder, recurrent, severe with psychotic symptoms (principal); E11.65 Type 2 diabetes mellitus with hyperglycemia; E11.40 Type 2 diabetes mellitus with diabetic neuropathy, unspecified; E11.22 Type 2 diabetes mellitus with diabetic chronic kidney disease; I12.9 Hypertensive chronic kidney disease with stage 1 through stage 4 chronic kidney disease, or unspecified chronic kidney disease; N18.2 Chronic kidney disease, stage 2 (mild); N40.0 Benign prostatic hyperplasia without lower urinary tract symptoms; K21.9 Gastro-esophageal reflux disease without esophagitis; I95.1 Orthostatic hypotension; F12.10 Cannabis abuse, uncomplicated; F10.11 Alcohol abuse, in remission; F15.11 Other stimulant abuse, in remission; Z91.14 Patient's other noncompliance with medication regimen; Z90.5 Acquired absence of kidney; Z89.412 Acquired absence of left great toe; Z79.82 Long term (current) use of aspirin; Z79.4 Long term (current) use of insulin; Z87.891 Personal history of nicotine dependence; Z88.8 Allergy status to other drugs, medicaments and biological substances; Z91.5 Personal history of self-harm
CPT/HCPCS: 36415; 80053; 81001; 82010; 82800; 82803; 82947; 83036; 84436; 84443; 85025; 96372; 99285; A9270; G0378; G0480; J1650; J1815; J7030; J7040; J7120; Q3014

== ENCOUNTER 2020-11-30 13:45 | Inpatient (IN) | payer OTHER ==
[~2020-11-30] VITALS: Ht 185.4 cm; Wt 57.9 kg
[2020-11-30 13:55] LABS: Calcium, Ionized (POC) 1.24 mmol/L (1.10-1.46); Chloride (POC) 97 mmol/L (98-108); Creatinine (POC) 0.8 mg/dL (0.8-1.3); Glucose (ISTAT POC) 77 mg/dL (70-99); Hemoglobin (POC) 13.3 g/dL (13.5-17.5); Potassium (POC) 3.4 mmol/L (3.5-5.5); Sodium (POC) 139 mmol/L (135-148); Total CO2 (POC) 32 mmol/L (21-32)
[2020-11-30 14:00] LABS: BASOPHILS ABSOLUTE AUTO 0.03 K/mm3 (0.00-0.23); BASOPHILS PERCENT AUTO 1 % (0-2); EOSINOPHILS ABSOLUTE AUTO 0.09 K/mm3 (0.00-0.68); EOSINOPHILS PERCENT AUTO 2 % (0-6); Hematocrit 37.5 % (37.0-53.0); Hemoglobin 12.7 g/dL (13.5-17.5); IMMATURE GRAN ABSOLUTE AUTO 0.01 K/mm3 (0.00-0.10); IMMATURE GRAN PERCENT AUTO 0 % (0-1); LYMPHOCYTES ABSOLUTE AUTO 2.14 K/mm3 (0.84-5.20); LYMPHOCYTES PERCENT AUTO 35 % (21-46); MONOCYTES ABSOLUTE AUTO 0.58 K/mm3 (0.16-1.47); MONOCYTES PERCENT AUTO 9 % (4-13); Mean Corpuscular HGB 31.9 pg (26.0-34.0); Mean Corpuscular HGB Conc 33.9 g/dL (31.5-36.5); Mean Corpuscular Volume 94 fL (80-100); Mean Platelet Volume 9.3 fL (9.1-12.4); NEUTROPHILS ABSOLUTE AUTO 3.29 K/mm3 (1.96-9.15); NEUTROPHILS PERCENT AUTO 54 % (41-73); Platelet Count 345 K/mm3 (150-400); RDW Coefficient Variation 13.2 % (11.7-14.2); RDW Standard Deviation 45.8 fL (35.1-46.3); Red Blood Cell Count 3.98 M/mm3 (4.30-5.90); White Blood Cell Count 6.14 K/mm3 (4.00-11.30)
[2020-11-30 14:26] LABS: Alanine Aminotransfer (ALT/SGP 41 U/L (12-78); Albumin, Blood 2.1 g/dL (3.4-5.0); Albumin/Globulin Ratio 0.6 (0.8-1.8); Alk Phos 129 U/L (50-136); Anion Gap 5 mmol/L (6-16); Aspartate Aminotrans (AST/SGOT 22 U/L (12-37); Bilirubin, Total 0.1 mg/dL (0.1-1.0); Blood Urea Nitrogen 15 mg/dL (8-24); Bun/Creatinine Ratio 17.3 (12.0-20.0); CO2, Blood 29 mmol/L (21-32); Calcium, Blood 8.4 mg/dL (8.5-10.1); Chloride, Blood 106 mmol/L (98-108); Creatinine, Blood 0.87 mg/dL (0.60-1.20); Ethanol (Alcohol), Blood, Med <3 mg/dL; Globulin, Blood 3.7 g/dL (2.2-4.0); Glomerular Filtration Rate >60 (60-); Glucose, Blood 74 mg/dL (70-99); Potassium, Blood 3.5 mmol/L (3.5-5.5); Sodium, Blood 140 mmol/L (136-145); Total Protein, Blood 5.8 g/dL (6.4-8.2); Troponin I <0.015 ng/mL (0.000-0.040)
[2020-11-30 16:27] LABS: Source, Urine Clean Catch
[2020-11-30 16:48] LABS: Appearance, Urine Clear (Clear); Bilirubin, Urine Neg (Neg); Blood, Urine 1+ (Neg); Color, Urine Yellow (P-Yellow); Glucose Qualitative, Urine 4+ (Neg); Ketones, Urine Neg (Neg); Leukocyte Esterase, Urine Neg (Neg); Nitrite, Urine Neg (Neg); Protein, Urine 3+ (Neg); Urobilinogen, Urine NORM (Normal)
[2020-11-30] MEDS ORDERED: TAMS.4ER PO (17:25)
[2020-11-30] MEDS ORDERED: BUPR150ER PO (17:25)
[2020-11-30] MEDS ORDERED: ASPIR 8181 M1 PO (17:25)
[2020-11-30] MEDS ORDERED: LOSA25 PO (17:25)
[2020-11-30] MEDS ORDERED: BASAGLAR K100 UNIT/6 SC (17:25)
[2020-11-30] MEDS ORDERED: ATOR40TA PO (17:25)
[2020-11-30] MEDS ORDERED: GABA300 PO (17:25)
[2020-11-30] MEDS ORDERED: HUMALOG KW100 UNIT/1 SC (17:26)
[2020-11-30] MEDS ORDERED: MIRALAX17 GM PO (17:26)
[2020-11-30 17:34] LABS: U Amphetamine Screen Not Detected; U Barbituate Screen Not Detected; U Benzodiazapine Screen Not Detected; U Buprenorphine Screen Not Detected; U Cannabinoids Screen DETECTED; U Cocaine Screen Not Detected; U Methadone Screen Not Detected; U Methamphetamine Screen Not Detected; U Opiates Screen Not Detected; U Oxycodone Screen Not Detected; U Phencyclidine Screen Not Detected; U Propoxyphene Screen Not Detected
[2020-11-30 18:05] LABS: Red Blood Cells, Urine 0-2 /hpf (0-2); White Blood Cells, Urine 0-2 /hpf (0-5)
[2020-11-30 18:06] LABS: Bacteria Rare /hpf; Squamous Epithelial Cells Rare /hpf (Few)
--- NOTE | 2020-11-30 19:28 | NUR ---
DNR ORDER CONFIRMED WITH BOTH PT AND CLIFF NG RN. DNR BAND PLACED TO LEFT WRIST.
--- NOTE | 2020-12-01 00:47 | NUR ---
BLADDER SCAN READS > 999 MLS. PT HAS BEEN UNABLE TO VOID SINCE ADMISSION. NOTIFIED DR. VERDE. ORDER FOR ONE TIME STRAIGHT CATH AND BLADDER SCAN IN 6 HRS. 1500 MLS OUT WITH STRAIGHT CATH.
[2020-12-01 05:03] LABS: BASOPHILS ABSOLUTE AUTO 0.04 K/mm3 (0.00-0.23); BASOPHILS PERCENT AUTO 1 % (0-2); EOSINOPHILS ABSOLUTE AUTO 0.06 K/mm3 (0.00-0.68); EOSINOPHILS PERCENT AUTO 1 % (0-6); Hematocrit 31.9 % (37.0-53.0); Hemoglobin 10.7 g/dL (13.5-17.5); IMMATURE GRAN ABSOLUTE AUTO 0.02 K/mm3 (0.00-0.10); IMMATURE GRAN PERCENT AUTO 0 % (0-1); LYMPHOCYTES ABSOLUTE AUTO 1.63 K/mm3 (0.84-5.20); LYMPHOCYTES PERCENT AUTO 29 % (21-46); MONOCYTES ABSOLUTE AUTO 0.51 K/mm3 (0.16-1.47); MONOCYTES PERCENT AUTO 9 % (4-13); Mean Corpuscular HGB 30.9 pg (26.0-34.0); Mean Corpuscular HGB Conc 33.5 g/dL (31.5-36.5); Mean Corpuscular Volume 92 fL (80-100); Mean Platelet Volume 9.2 fL (9.1-12.4); NEUTROPHILS ABSOLUTE AUTO 3.43 K/mm3 (1.96-9.15); NEUTROPHILS PERCENT AUTO 60 % (41-73); Platelet Count 362 K/mm3 (150-400); RDW Coefficient Variation 13.2 % (11.7-14.2); Red Blood Cell Count 3.46 M/mm3 (4.30-5.90); White Blood Cell Count 5.69 K/mm3 (4.00-11.30)
[2020-12-01 05:52] LABS: Alanine Aminotransfer (ALT/SGP 29 U/L (12-78); Albumin, Blood 1.7 g/dL (3.4-5.0); Albumin/Globulin Ratio 0.6 (0.8-1.8); Alk Phos 92 U/L (50-136); Anion Gap 4 mmol/L (6-16); Aspartate Aminotrans (AST/SGOT 15 U/L (12-37); Bilirubin, Total <0.1 mg/dL (0.1-1.0); Blood Urea Nitrogen 15 mg/dL (8-24); Bun/Creatinine Ratio 16.9 (12.0-20.0); CO2, Blood 31 mmol/L (21-32); Calcium, Blood 7.4 mg/dL (8.5-10.1); Chloride, Blood 106 mmol/L (98-108); Creatinine, Blood 0.89 mg/dL (0.60-1.20); Globulin, Blood 2.7 g/dL (2.2-4.0); Glomerular Filtration Rate >60 (60-); Glucose, Blood 110 mg/dL (70-99); Potassium, Blood 3.3 mmol/L (3.5-5.5); Sodium, Blood 141 mmol/L (136-145); Total Protein, Blood 4.4 g/dL (6.4-8.2)
--- NOTE | 2020-12-01 11:56 | NUR ---
Upon receiving a request for spiritual care, I visit patient. Patient is very tearful and explains about his loss of hope and desire to keep living. We then look at his coping skills and resources. We explore sources of meaning, purpose and dignity as well as patient's spiritual beliefs. Patient shares personal information. I normalize patient's struggle, reinforce helpful attitudes and practices and provide emotional support, therapeutic listening, pastoral nurses' association counselor and prayer. Patient responds well and displays evidence of increased hope and resolve to move forward in life. I will continue to be available to work with patient on a good spiritual/emotional self-care plan for DC.
--- NOTE | 2020-12-01 15:35 | NUR ---
PT COMMENTS ON THIS RN WITNESSED PT TELLING STAFF "I STOPPED TAKING MY MEDICATIONS BECAUSE I WANT TO , I DO NOT HAVE A REASON TO LIVE". THIS RN PERFORMED A SUICIDE REASSESSMENT AND PT IS LOW RISK PER FOCUSED QUESTIONS. PT DOES NOT HAVE AN ACTIVE PLAN FOR SUICIDE, THOUGH HE DOES STATE, "THERE IS NOTHING TO LIVE FOR". DR. GIBSON NOTIFIED OF PT STATEMENTS AND ASSESSMENT AT 1530. PLAN IS TO CONTINUE MONITORING FOR ANY ACTIVE SUICIDE PLAN OR STATEMENTS. THIS RN WILL CONTINUE TO MONITOR PT STATUS.
--- NOTE | 2020-12-01 18:07 | NUR ---
SHIFT SUMMARY PT IS AO AND FORGETFUL AT TIMES. PT DENIES PAIN, N/V, SOB. PT MADE STATEMENTS ABOUT WANTING TO -SEE NOTE. PHYSICIAN IS AWARE. PT IS ONE PERSON ASSIST WITH FWW AND WORKED WITH PT/OT. PT TELE WAS SINUS TACH 101 WHILE WORKING WITH PT/OT. PT APPETITE IS GOOD. PT CBG IS ELEVATED THIS DAVID AT 397-PHYSICIAN IS AWARE AND INSULIN SS IS NOW MEDIUM. NO PROCEDURES PERFORMED THIS SHIFT. PT DID NOT HAVE VISITORS. PLAN IS FOR DC WITH HH OR ASSISTED LIVING. PT IS IN BED, CALL LIGHT IN REACH, BED IN LOW POSITION.
--- NOTE | 2020-12-01 21:22 | NUR ---
ASSUMED CARE. AOX3. DENIES ANY SUCIDIAL INTENTIONS. STATES HE IS FEELING MUCH BETTER. PAIN NOTED 5/10 IN BILATERAL HANDS. REPORTS IT IS NUMBNESS AND TINGLING. ALSO HAS IT IN HIS FEET. GABAPENTIN GIVEN. LUNGS CLEAR. HR REGULAR. BTX4. USING THE URINAL WITH NO PROBLEMS. BLOOD SUGAR 402. GAVE 20 UNITS OF LONG ACTING. DR. CASTANEDA NOTIFIED. NO NEW ORDERS. NO OTHER CONCERNS TO NOTE. CALL LIGHT IS IN REACH.
[2020-12-02 05:11] LABS: BASOPHILS ABSOLUTE AUTO 0.05 K/mm3 (0.00-0.23); BASOPHILS PERCENT AUTO 1 % (0-2); EOSINOPHILS PERCENT AUTO 2 % (0-6); Hematocrit 33.9 % (37.0-53.0); Hemoglobin 11.1 g/dL (13.5-17.5); IMMATURE GRAN ABSOLUTE AUTO 0.02 K/mm3 (0.00-0.10); IMMATURE GRAN PERCENT AUTO 0 % (0-1); LYMPHOCYTES ABSOLUTE AUTO 2.83 K/mm3 (0.84-5.20); LYMPHOCYTES PERCENT AUTO 46 % (21-46); MONOCYTES ABSOLUTE AUTO 0.49 K/mm3 (0.16-1.47); MONOCYTES PERCENT AUTO 8 % (4-13); Mean Corpuscular HGB 31.2 pg (26.0-34.0); Mean Corpuscular HGB Conc 32.7 g/dL (31.5-36.5); Mean Corpuscular Volume 95 fL (80-100); Mean Platelet Volume 9.3 fL (9.1-12.4); NEUTROPHILS ABSOLUTE AUTO 2.64 K/mm3 (1.96-9.15); NEUTROPHILS PERCENT AUTO 43 % (41-73); Platelet Count 370 K/mm3 (150-400); RDW Coefficient Variation 13.6 % (11.7-14.2); RDW Standard Deviation 48.4 fL (35.1-46.3); Red Blood Cell Count 3.56 M/mm3 (4.30-5.90); White Blood Cell Count 6.13 K/mm3 (4.00-11.30)
[2020-12-02 05:29] LABS: Alanine Aminotransfer (ALT/SGP 40 U/L (12-78); Albumin, Blood 1.8 g/dL (3.4-5.0); Albumin/Globulin Ratio 0.6 (0.8-1.8); Alk Phos 121 U/L (50-136); Anion Gap 3 mmol/L (6-16); Aspartate Aminotrans (AST/SGOT 20 U/L (12-37); Bilirubin, Total 0.1 mg/dL (0.1-1.0); Blood Urea Nitrogen 23 mg/dL (8-24); Bun/Creatinine Ratio 20.9 (12.0-20.0); CO2, Blood 31 mmol/L (21-32); Calcium, Blood 7.8 mg/dL (8.5-10.1); Chloride, Blood 105 mmol/L (98-108); Glomerular Filtration Rate >60 (60-); Glucose, Blood 179 mg/dL (70-99); Potassium, Blood 4.2 mmol/L (3.5-5.5); Sodium, Blood 139 mmol/L (136-145); Total Protein, Blood 4.8 g/dL (6.4-8.2)
--- NOTE | 2020-12-02 06:14 | NUR ---
SHIFT SUMMARY: AOX3, DENIES ANY SUICIDAL INTENTIONS. VS WNL, BP AVERAGE 108-130'S. BLOOD SUGAR 402 AT BEDTIME, 20 UNITS OF LONG ACTING GIVEN. MD WAS NOTIFIED, NO NEW ORDERS WERE RECIEVED. RECHECK WAS 318 AND AGAIN 179 THIS AM. DOES REPORTS PAIN TO BILATERAL HANDS RELATED TO NUMBNESS AND TINGLING. PLANS TO DISCUSS AN INCREASE OF GABAPENTIN WITH MD TODAY. ONLY URINATED X1 400CC. BLADDER SCAN COMPLETED WITH GREATER THAN 765 POST VOID. STRAIGHT CATH COMPLETED WITH 700CC OUTPUT. ENCOURAGED HIM TO TRY AND VOID EVERY 2 HOURS TODAY AND POSSIBLY GET SOMEONE TO HELP HIM STAND TO SEE IF HE CAN VOID THAT WAY. GOOD APPETITE. DENIED ANY OTHER CHANGES. CALL LIGHT IN REACH, AND BED ALARM ON.
[2020-12-02] MEDS ORDERED: Acetaminophen325 M1 PO (15:29)
--- NOTE | 2020-12-02 16:47 | NUR ---
SHIFT SUMMARY PT IS A&O, PLEASANT AND CO-OP. ADMITTED FOR HYPERTENSIVE URGENCY; RESOLVED. PT STARTED ON FLOWMAX FOR PROSTATE RETENSION PROBLEMS. PT VOIDING AND USING URINAL. UP TO BTHRM FOR BM THIS AM. PT USING W/C AT BASELINE FOR DISTANCE. SR ON TELE, PER MX TECH. C/O NEUROPATHY IN HANDS AND FEET. MEDICATED PER EMAR. DR GARCIA IN TO SEE PT IN AM. PT LATER WANTING TO GO HOME. DR GARCIA NOTIFIED AND CAME BACK TO TALK TO PT, DISCUSSING PLAN OF CARE AND F/U. PT AGREEABLE AND WANTING TO GO HOME. D/C PAPERS DISCUSSED AND TX ARRANGED PER PT REQUEST. PT ASSISTED OUT IN HOME W/C BY TRANSPORT STAFF. DENIED FURTHER NEEDS. MEDS FAXED TO [facility] PER PT REQUEST.
[2021-01-01] MEDS ORDERED: PRED20 PO (08:01)
[2021-01-01] MEDS ORDERED: KETO10 PO (08:01)
[2021-01-01] MEDS ORDERED: Voltaren100 GM TOP (08:01)
== END 2020-12-02 16:17 | disposition home health service (06) | DRG 305 ==
LOC: ER 13:45 → MEDS 17:45
PROVIDERS: Emergency Medicine; ADMIT Internal Medicine
DX: I16.0 Hypertensive urgency (principal); R64 Cachexia; Z68.1 Body mass index [BMI] 19.9 or less, adult; E44.0 Moderate protein-calorie malnutrition; E11.40 Type 2 diabetes mellitus with diabetic neuropathy, unspecified; Z89.412 Acquired absence of left great toe; Z87.891 Personal history of nicotine dependence; Z90.5 Acquired absence of kidney; F32.9 Major depressive disorder, single episode, unspecified; E11.22 Type 2 diabetes mellitus with diabetic chronic kidney disease; N18.2 Chronic kidney disease, stage 2 (mild); Z66 Do not resuscitate; Z79.82 Long term (current) use of aspirin; E11.649 Type 2 diabetes mellitus with hypoglycemia without coma; N40.0 Benign prostatic hyperplasia without lower urinary tract symptoms; E87.6 Hypokalemia; R33.9 Retention of urine, unspecified; Z79.4 Long term (current) use of insulin
CPT/HCPCS: 36415; 51701; 80047; 80053; 81001; 82947; 83690; 84484; 85014; 85025; 93005; 93010; 96374-59; 96375-59; 97116; 97162; 97165; 97530; 97535; 99285-25; A9270; G0480; J0360; J1650; J2405; J2550; J7030

== ENCOUNTER 2020-12-11 03:33 | Emergency (ER) | payer OTHER ==
[~2020-12-11] VITALS: Ht 185.4 cm; Wt 72.6 kg
[~2020-12-11 03:33] MED LIST changes: +ASPIR 8181 M1 PO; +ATOR40TA PO; +Acetaminophen325 M1 PO; +BASAGLAR K100 UNIT/6 SC; +BUPR150ER PO; +GABA300 PO; +LOSA25 PO; +TAMS.4ER PO
[2020-12-11 04:17] LABS: BASOPHILS ABSOLUTE AUTO 0.03 K/mm3 (0.00-0.23); BASOPHILS PERCENT AUTO 0 % (0-2); EOSINOPHILS ABSOLUTE AUTO 0.09 K/mm3 (0.00-0.68); EOSINOPHILS PERCENT AUTO 1 % (0-6); Hemoglobin 11.6 g/dL (13.5-17.5); IMMATURE GRAN ABSOLUTE AUTO 0.01 K/mm3 (0.00-0.10); IMMATURE GRAN PERCENT AUTO 0 % (0-1); LYMPHOCYTES ABSOLUTE AUTO 1.77 K/mm3 (0.84-5.20); LYMPHOCYTES PERCENT AUTO 26 % (21-46); MONOCYTES PERCENT AUTO 10 % (4-13); Mean Corpuscular HGB 31.5 pg (26.0-34.0); Mean Corpuscular HGB Conc 32.2 g/dL (31.5-36.5); Mean Corpuscular Volume 98 fL (80-100); Mean Platelet Volume 9.4 fL (9.1-12.4); NEUTROPHILS ABSOLUTE AUTO 4.19 K/mm3 (1.96-9.15); NEUTROPHILS PERCENT AUTO 62 % (41-73); Platelet Count 348 K/mm3 (150-400); RDW Coefficient Variation 14.1 % (11.7-14.2); Red Blood Cell Count 3.68 M/mm3 (4.30-5.90); White Blood Cell Count 6.79 K/mm3 (4.00-11.30)
[2020-12-11 04:44] LABS: Alanine Aminotransfer (ALT/SGP 39 U/L (12-78); Albumin, Blood 2.4 g/dL (3.4-5.0); Albumin/Globulin Ratio 0.6 (0.8-1.8); Alk Phos 155 U/L (50-136); Anion Gap 4 mmol/L (6-16); Aspartate Aminotrans (AST/SGOT 26 U/L (12-37); Beta-hydroxybutyrate 1.3 mg/dL (0.2-2.8); Bilirubin, Total 0.2 mg/dL (0.1-1.0); Blood Urea Nitrogen 23 mg/dL (8-24); Bun/Creatinine Ratio 20.9 (12.0-20.0); CO2, Blood 31 mmol/L (21-32); Calcium, Blood 8.3 mg/dL (8.5-10.1); Chloride, Blood 101 mmol/L (98-108); Globulin, Blood 3.7 g/dL (2.2-4.0); Glomerular Filtration Rate >60 (60-); Glucose, Blood 486 mg/dL (70-99); Potassium, Blood 4.6 mmol/L (3.5-5.5); Sodium, Blood 136 mmol/L (136-145); Total Protein, Blood 6.1 g/dL (6.4-8.2); Troponin I <0.015 ng/mL (0.000-0.040)
[2020-12-11 04:46] LABS: Base Excess Venous 8.7 mmol/L; Bicarbonate Venous 31.7 mmol/L (24.0-30.0); PO2 Venous 165 mmHg (38-42); pH Blood Venous 7.49 (7.34-7.37)
[2020-12-11] MEDS ORDERED: Valium5 MG PO (08:11)
[2020-12-11] MEDS ORDERED: 8 HOUR ACETAMI650 MG PO (08:11)
[2020-12-11] MEDS ORDERED: LIDO700A20 TOP (08:11)
[2021-01-01] MEDS ORDERED: KETO10 PO (08:01)
[2021-01-01] MEDS ORDERED: PRED20 PO (08:01)
[2021-01-01] MEDS ORDERED: Voltaren100 GM TOP (08:01)
== END 2020-12-11 09:10 | disposition home or self-care (01) ==
LOC: ER 03:33
PROVIDERS: Emergency Medicine
DX: M54.2 Cervicalgia (principal); Z79.899 Other long term (current) drug therapy; Z79.4 Long term (current) use of insulin
CPT/HCPCS: 36415; 70498; 71045; 71275; 74174; 80053; 82010; 82803; 82947; 83690; 84484; 85025; 93005; 93010; 96361; 96374-59; 96375; 99285-25; A9270; J2270; J2405; J3360; J7120; Q9967

== ENCOUNTER 2020-12-16 08:27 | Emergency (ER) | payer OTHER ==
[~2020-12-16] VITALS: Ht 185.4 cm; Wt 54.4 kg
[~2020-12-16 08:27] MED LIST changes: +8 HOUR ACETAMI650 MG PO; +LIDO700A20 TOP; +Valium5 MG PO
[2020-12-16 08:59] LABS: Base Excess Venous 6.1 mmol/L; Bicarbonate Venous 29.1 mmol/L (24.0-30.0); PCO2 Venous 46.1 mmHg (38-42); PO2 Venous 121 mmHg (38-42); pH Blood Venous 7.43 (7.34-7.37)
[2020-12-16 09:13] LABS: Source, Urine Clean Catch
[2020-12-16 09:19] LABS: Bilirubin, Urine Neg (Neg); Blood, Urine Neg (Neg); Glucose Qualitative, Urine 4+ (Neg); Ketones, Urine Neg (Neg); Leukocyte Esterase, Urine Neg (Neg); Nitrite, Urine Neg (Neg); Protein, Urine 4+ (Neg); Urobilinogen, Urine NORM (Normal)
[2020-12-16 09:21] LABS: BASOPHILS ABSOLUTE AUTO 0.06 K/mm3 (0.00-0.23); BASOPHILS PERCENT AUTO 1 % (0-2); EOSINOPHILS ABSOLUTE AUTO 0.15 K/mm3 (0.00-0.68); EOSINOPHILS PERCENT AUTO 2 % (0-6); Hematocrit 37.1 % (37.0-53.0); Hemoglobin 12.1 g/dL (13.5-17.5); IMMATURE GRAN ABSOLUTE AUTO 0.03 K/mm3 (0.00-0.10); IMMATURE GRAN PERCENT AUTO 0 % (0-1); LYMPHOCYTES ABSOLUTE AUTO 2.13 K/mm3 (0.84-5.20); LYMPHOCYTES PERCENT AUTO 28 % (21-46); MONOCYTES ABSOLUTE AUTO 0.71 K/mm3 (0.16-1.47); MONOCYTES PERCENT AUTO 9 % (4-13); Mean Corpuscular HGB 31.3 pg (26.0-34.0); Mean Corpuscular HGB Conc 32.6 g/dL (31.5-36.5); Mean Corpuscular Volume 96 fL (80-100); Mean Platelet Volume 9.6 fL (9.1-12.4); NEUTROPHILS ABSOLUTE AUTO 4.46 K/mm3 (1.96-9.15); NEUTROPHILS PERCENT AUTO 59 % (41-73); Platelet Count 421 K/mm3 (150-400); RDW Coefficient Variation 13.9 % (11.7-14.2); RDW Standard Deviation 48.7 fL (35.1-46.3); Red Blood Cell Count 3.87 M/mm3 (4.30-5.90); White Blood Cell Count 7.54 K/mm3 (4.00-11.30)
[2020-12-16 09:24] LABS: Appearance, Urine Clear (Clear); Color, Urine Yellow (P-Yellow)
[2020-12-16 09:27] LABS: Bacteria Few /hpf; Squamous Epithelial Cells Few /hpf (Few); White Blood Cells, Urine 0-2 /hpf (0-5)
[2020-12-16 09:37] LABS: Beta-hydroxybutyrate 1.5 mg/dL (0.2-2.8)
[2020-12-16 09:43] LABS: Alanine Aminotransfer (ALT/SGP 53 U/L (12-78); Albumin, Blood 2.4 g/dL (3.4-5.0); Albumin/Globulin Ratio 0.6 (0.8-1.8); Alk Phos 171 U/L (50-136); Anion Gap 2 mmol/L (6-16); Aspartate Aminotrans (AST/SGOT 26 U/L (12-37); Bilirubin, Total 0.1 mg/dL (0.1-1.0); Blood Urea Nitrogen 17 mg/dL (8-24); Bun/Creatinine Ratio 17.9 (12.0-20.0); CO2, Blood 31 mmol/L (21-32); Calcium, Blood 8.3 mg/dL (8.5-10.1); Chloride, Blood 103 mmol/L (98-108); Creatinine, Blood 0.95 mg/dL (0.60-1.20); Globulin, Blood 3.7 g/dL (2.2-4.0); Glomerular Filtration Rate >60 (60-); Glucose, Blood 455 mg/dL (70-99); Potassium, Blood 4.8 mmol/L (3.5-5.5); Sodium, Blood 136 mmol/L (136-145); Total Protein, Blood 6.1 g/dL (6.4-8.2)
[2021-01-01] MEDS ORDERED: PRED20 PO (08:01)
[2021-01-01] MEDS ORDERED: Voltaren100 GM TOP (08:01)
[2021-01-01] MEDS ORDERED: KETO10 PO (08:01)
== END 2020-12-16 13:15 | disposition home or self-care (01) ==
LOC: ER 08:27
PROVIDERS: Emergency Medicine
DX: M54.12 Radiculopathy, cervical region (principal); I10 Essential (primary) hypertension; Z88.8 Allergy status to other drugs, medicaments and biological substances; Z79.82 Long term (current) use of aspirin; Z79.899 Other long term (current) drug therapy; Z79.4 Long term (current) use of insulin
CPT/HCPCS: 36415; 71045; 80053; 81001; 82010; 82803; 82947; 84484; 85025; 93005; 93010; 96374; 96375; 99284-25; A9270; J1885; J2270; J7030

== ENCOUNTER 2020-12-24 08:34 | Emergency (ER) | payer OTHER ==
[~2020-12-24] VITALS: Ht 185.4 cm; Wt 65.8 kg
[2020-12-24 08:57] LABS: BASOPHILS ABSOLUTE AUTO 0.06 K/mm3 (0.00-0.23); BASOPHILS PERCENT AUTO 1 % (0-2); EOSINOPHILS PERCENT AUTO 1 % (0-6); Hemoglobin 10.7 g/dL (13.5-17.5); IMMATURE GRAN ABSOLUTE AUTO 0.03 K/mm3 (0.00-0.10); IMMATURE GRAN PERCENT AUTO 0 % (0-1); LYMPHOCYTES ABSOLUTE AUTO 2.15 K/mm3 (0.84-5.20); LYMPHOCYTES PERCENT AUTO 25 % (21-46); MONOCYTES ABSOLUTE AUTO 0.73 K/mm3 (0.16-1.47); MONOCYTES PERCENT AUTO 8 % (4-13); Mean Corpuscular HGB 31.5 pg (26.0-34.0); Mean Corpuscular HGB Conc 32.4 g/dL (31.5-36.5); Mean Corpuscular Volume 97 fL (80-100); Mean Platelet Volume 9.7 fL (9.1-12.4); NEUTROPHILS ABSOLUTE AUTO 5.72 K/mm3 (1.96-9.15); NEUTROPHILS PERCENT AUTO 65 % (41-73); Platelet Count 389 K/mm3 (150-400); RDW Coefficient Variation 13.8 % (11.7-14.2); RDW Standard Deviation 49.2 fL (35.1-46.3); White Blood Cell Count 8.79 K/mm3 (4.00-11.30)
[2020-12-24 09:17] LABS: Alanine Aminotransfer (ALT/SGP 79 U/L (12-78); Albumin, Blood 2.2 g/dL (3.4-5.0); Albumin/Globulin Ratio 0.6 (0.8-1.8); Alk Phos 232 U/L (50-136); Anion Gap 6 mmol/L (6-16); Aspartate Aminotrans (AST/SGOT 31 U/L (12-37); Bilirubin, Total 0.1 mg/dL (0.1-1.0); Blood Urea Nitrogen 23 mg/dL (8-24); Bun/Creatinine Ratio 24.7 (12.0-20.0); CO2, Blood 28 mmol/L (21-32); Calcium, Blood 8.1 mg/dL (8.5-10.1); Chloride, Blood 103 mmol/L (98-108); Creatinine, Blood 0.93 mg/dL (0.60-1.20); Globulin, Blood 3.6 g/dL (2.2-4.0); Glomerular Filtration Rate >60 (60-); Glucose, Blood 411 mg/dL (70-99); Potassium, Blood 4.1 mmol/L (3.5-5.5); Sodium, Blood 137 mmol/L (136-145); Total Protein, Blood 5.8 g/dL (6.4-8.2)
[2020-12-24 09:30] LABS: Source, Urine Voided
[2020-12-24 09:34] LABS: Appearance, Urine Clear (Clear); Bilirubin, Urine Neg (Neg); Blood, Urine 1+ (Neg); Color, Urine Yellow (P-Yellow); Glucose Qualitative, Urine 4+ (Neg); Ketones, Urine Neg (Neg); Leukocyte Esterase, Urine Neg (Neg); Nitrite, Urine Neg (Neg); Protein, Urine 4+ (Neg); Urobilinogen, Urine NORM (Normal)
[2020-12-24 09:48] LABS: White Blood Cells, Urine 0-2 /hpf (0-5)
[2020-12-24 09:49] LABS: Bacteria Rare /hpf; Squamous Epithelial Cells Rare /hpf (Few)
[2021-01-01] MEDS ORDERED: Voltaren100 GM TOP (08:01)
[2021-01-01] MEDS ORDERED: KETO10 PO (08:01)
[2021-01-01] MEDS ORDERED: PRED20 PO (08:01)
== END 2020-12-24 10:57 | disposition home or self-care (01) ==
LOC: ER 08:34
PROVIDERS: Emergency Medicine
DX: E11.65 Type 2 diabetes mellitus with hyperglycemia (principal); E11.40 Type 2 diabetes mellitus with diabetic neuropathy, unspecified; I10 Essential (primary) hypertension; F32.9 Major depressive disorder, single episode, unspecified; Z79.899 Other long term (current) drug therapy; Z88.8 Allergy status to other drugs, medicaments and biological substances; Z79.4 Long term (current) use of insulin
CPT/HCPCS: 36415; 70450; 72125; 80053; 81001; 82947; 83880; 85025; 93005; 93010; 96360; 99285-25; J7030

== ENCOUNTER 2020-12-25 09:07 | Emergency (ER) | payer OTHER ==
[~2020-12-25] VITALS: Ht 185.4 cm; Wt 79.4 kg
[2020-12-25 09:36] LABS: BASOPHILS ABSOLUTE AUTO 0.04 K/mm3 (0.00-0.23); BASOPHILS PERCENT AUTO 1 % (0-2); EOSINOPHILS ABSOLUTE AUTO 0.09 K/mm3 (0.00-0.68); EOSINOPHILS PERCENT AUTO 1 % (0-6); Hematocrit 31.9 % (37.0-53.0); Hemoglobin 10.3 g/dL (13.5-17.5); IMMATURE GRAN ABSOLUTE AUTO 0.02 K/mm3 (0.00-0.10); IMMATURE GRAN PERCENT AUTO 0 % (0-1); LYMPHOCYTES ABSOLUTE AUTO 1.98 K/mm3 (0.84-5.20); LYMPHOCYTES PERCENT AUTO 29 % (21-46); MONOCYTES ABSOLUTE AUTO 0.64 K/mm3 (0.16-1.47); MONOCYTES PERCENT AUTO 9 % (4-13); Mean Corpuscular HGB 31.4 pg (26.0-34.0); Mean Corpuscular HGB Conc 32.3 g/dL (31.5-36.5); Mean Corpuscular Volume 97 fL (80-100); Mean Platelet Volume 9.8 fL (9.1-12.4); NEUTROPHILS ABSOLUTE AUTO 4.05 K/mm3 (1.96-9.15); NEUTROPHILS PERCENT AUTO 59 % (41-73); Platelet Count 381 K/mm3 (150-400); RDW Coefficient Variation 13.7 % (11.7-14.2); RDW Standard Deviation 49.2 fL (35.1-46.3); Red Blood Cell Count 3.28 M/mm3 (4.30-5.90); White Blood Cell Count 6.82 K/mm3 (4.00-11.30)
[2020-12-25 09:58] LABS: Alanine Aminotransfer (ALT/SGP 77 U/L (12-78); Albumin/Globulin Ratio 0.6 (0.8-1.8); Alk Phos 205 U/L (50-136); Anion Gap 3 mmol/L (6-16); Aspartate Aminotrans (AST/SGOT 43 U/L (12-37); Bilirubin, Total 0.1 mg/dL (0.1-1.0); Blood Urea Nitrogen 26 mg/dL (8-24); CO2, Blood 29 mmol/L (21-32); Calcium, Blood 7.7 mg/dL (8.5-10.1); Chloride, Blood 104 mmol/L (98-108); Creatinine, Blood 1.04 mg/dL (0.60-1.20); Globulin, Blood 3.3 g/dL (2.2-4.0); Glomerular Filtration Rate >60 (60-); Glucose, Blood 468 mg/dL (70-99); Potassium, Blood 5.1 mmol/L (3.5-5.5); Sodium, Blood 136 mmol/L (136-145); Total Protein, Blood 5.3 g/dL (6.4-8.2)
[2020-12-25 10:14] LABS: Source, Urine Clean Catch
[2020-12-25 10:43] LABS: Appearance, Urine Clear (Clear); Bilirubin, Urine Neg (Neg); Blood, Urine 1+ (Neg); Glucose Qualitative, Urine 4+ (Neg); Ketones, Urine Neg (Neg); Leukocyte Esterase, Urine Neg (Neg); Nitrite, Urine Neg (Neg); Protein, Urine 3+ (Neg); Specific Gravity, Urine 1.015 (1.003-1.022); Urobilinogen, Urine NORM (Normal)
[2020-12-25 10:52] LABS: Color, Urine Pale Yellow (P-Yellow)
[2020-12-25 10:56] LABS: White Blood Cells, Urine Rare /hpf (0-5)
[2020-12-25 10:57] LABS: Bacteria Not Seen /hpf; Red Blood Cells, Urine 0-2 /hpf (0-2); Squamous Epithelial Cells Rare /hpf (Few)
[2021-01-01] MEDS ORDERED: PRED20 PO (08:01)
[2021-01-01] MEDS ORDERED: KETO10 PO (08:01)
[2021-01-01] MEDS ORDERED: Voltaren100 GM TOP (08:01)
== END 2020-12-25 14:13 | disposition home or self-care (01) ==
LOC: ER 09:07
PROVIDERS: Emergency Medicine
DX: M54.2 Cervicalgia (principal); G89.29 Other chronic pain; M25.519 Pain in unspecified shoulder; Z87.891 Personal history of nicotine dependence
CPT/HCPCS: 80053; 81001; 82947; 83690; 85025; 96372-59; 96374; 99283-25; J1170; J2405

== ENCOUNTER 2021-04-19 20:52 | Emergency (ER) | payer OTHER ==
[~2021-04-19] VITALS: Ht 182.9 cm; Wt 59.0 kg
[~2021-04-19 20:52] MED LIST changes: +Colace100 MG PO; +Dulcolax5 MG PO; +KETO10 PO; +PRED20 PO; +Voltaren100 GM TOP
[2021-04-19 21:21] LABS: BASOPHILS ABSOLUTE AUTO 0.08 K/mm3 (0.00-0.23); BASOPHILS PERCENT AUTO 1 % (0-2); EOSINOPHILS ABSOLUTE AUTO 0.08 K/mm3 (0.00-0.68); EOSINOPHILS PERCENT AUTO 1 % (0-6); Hematocrit 36.8 % (37.0-53.0); Hemoglobin 12.3 g/dL (13.5-17.5); IMMATURE GRAN ABSOLUTE AUTO 0.01 K/mm3 (0.00-0.10); IMMATURE GRAN PERCENT AUTO 0 % (0-1); LYMPHOCYTES ABSOLUTE AUTO 1.73 K/mm3 (0.84-5.20); LYMPHOCYTES PERCENT AUTO 27 % (21-46); MONOCYTES ABSOLUTE AUTO 0.47 K/mm3 (0.16-1.47); MONOCYTES PERCENT AUTO 7 % (4-13); Mean Corpuscular HGB 30.8 pg (26.0-34.0); Mean Corpuscular HGB Conc 33.4 g/dL (31.5-36.5); Mean Corpuscular Volume 92 fL (80-100); NEUTROPHILS ABSOLUTE AUTO 4.05 K/mm3 (1.96-9.15); NEUTROPHILS PERCENT AUTO 63 % (41-73); Platelet Count 333 K/mm3 (150-400); RDW Standard Deviation 44.4 fL (35.1-46.3); White Blood Cell Count 6.42 K/mm3 (4.00-11.30)
[2021-04-19 21:33] LABS: Alanine Aminotransfer (ALT/SGP 25 U/L (12-78); Albumin, Blood 1.9 g/dL (3.4-5.0); Albumin/Globulin Ratio 0.6 (0.8-1.8); Alk Phos 97 U/L (50-136); Anion Gap 2 mmol/L (6-16); Aspartate Aminotrans (AST/SGOT 18 U/L (12-37); Bilirubin, Total 0.1 mg/dL (0.1-1.0); Blood Urea Nitrogen 17 mg/dL (8-24); Bun/Creatinine Ratio 17.8 (12.0-20.0); CO2, Blood 29 mmol/L (21-32); Calcium, Blood 7.8 mg/dL (8.5-10.1); Chloride, Blood 110 mmol/L (98-108); Creatinine, Blood 0.95 mg/dL (0.60-1.20); Globulin, Blood 3.4 g/dL (2.2-4.0); Glomerular Filtration Rate >60 (60-); Glucose, Blood 238 mg/dL (70-99); Potassium, Blood 3.7 mmol/L (3.5-5.5); Sodium, Blood 141 mmol/L (136-145); Total Protein, Blood 5.3 g/dL (6.4-8.2)
[2021-04-19 22:07] LABS: Source, Urine Voided
[2021-04-19 22:08] LABS: Bilirubin, Urine Neg (Neg); Blood, Urine 2+ (Neg); Glucose Qualitative, Urine 4+ (Neg); Ketones, Urine Neg (Neg); Leukocyte Esterase, Urine Neg (Neg); Nitrite, Urine Neg (Neg); Protein, Urine 4+ (Neg); Specific Gravity, Urine 1.015 (1.003-1.022); Urobilinogen, Urine NORM (Normal); pH, Urine 6.5 (5.0-8.0)
[2021-04-19 22:16] LABS: Appearance, Urine Clear (Clear); Color, Urine Yellow (P-Yellow); Squamous Epithelial Cells Rare /hpf (Few); White Blood Cells, Urine Not Seen /hpf (0-5)
[2021-04-19 22:17] LABS: Bacteria Not Seen /hpf
[2021-04-19 23:13] LABS: SARS-Cov-2 (COVID-19) PCR, MMC NEGATIVE (NEGATIVE)
[2021-04-20] MEDS ORDERED: ONDA4ODT SL (00:58)
== END 2021-04-20 01:36 | disposition home or self-care (01) ==
LOC: ER 20:52
PROVIDERS: Emergency Medicine
DX: R10.31 Right lower quadrant pain (principal); G89.29 Other chronic pain; E11.40 Type 2 diabetes mellitus with diabetic neuropathy, unspecified; I12.9 Hypertensive chronic kidney disease with stage 1 through stage 4 chronic kidney disease, or unspecified chronic kidney disease; E11.22 Type 2 diabetes mellitus with diabetic chronic kidney disease; N18.9 Chronic kidney disease, unspecified; F32.9 Major depressive disorder, single episode, unspecified; N40.0 Benign prostatic hyperplasia without lower urinary tract symptoms; Z88.8 Allergy status to other drugs, medicaments and biological substances; Z87.891 Personal history of nicotine dependence; Z79.899 Other long term (current) drug therapy; Z79.82 Long term (current) use of aspirin; Z79.4 Long term (current) use of insulin
CPT/HCPCS: 71045; 74177; 80053; 81001; 83690; 85025; 93005; 93010; 96374; 96375; 99285-25; A9270; J0360; J1170; J1885; Q9967; U0004

== ENCOUNTER 2021-08-03 02:12 | Day surgery (SDC) | payer OTHER | END 2021-08-03 12:00 | disposition home or self-care (01) | LOC: WOUND 02:12 | DX: E11.621 Type 2 diabetes mellitus with foot ulcer (principal); L97.512 Non-pressure chronic ulcer of other part of right foot with fat layer exposed; L97.522 Non-pressure chronic ulcer of other part of left foot with fat layer exposed; I12.9 Hypertensive chronic kidney disease with stage 1 through stage 4 chronic kidney disease, or unspecified chronic kidney disease; N18.9 Chronic kidney disease, unspecified; E11.622 Type 2 diabetes mellitus with other skin ulcer; E11.59 Type 2 diabetes mellitus with other circulatory complications; E11.51 Type 2 diabetes mellitus with diabetic peripheral angiopathy without gangrene; I87.2 Venous insufficiency (chronic) (peripheral); R60.0 Localized edema; Z88.8 Allergy status to other drugs, medicaments and biological substances; Z87.891 Personal history of nicotine dependence | CPT/HCPCS: G0463 ==

== ENCOUNTER 2021-08-17 01:00 | Day surgery (SDC) | payer OTHER | END 2021-08-17 23:57 | disposition home or self-care (01) | LOC: WOUND | DX: E11.621 Type 2 diabetes mellitus with foot ulcer (principal); L97.519 Non-pressure chronic ulcer of other part of right foot with unspecified severity; L97.529 Non-pressure chronic ulcer of other part of left foot with unspecified severity; E11.622 Type 2 diabetes mellitus with other skin ulcer; E11.51 Type 2 diabetes mellitus with diabetic peripheral angiopathy without gangrene; E11.59 Type 2 diabetes mellitus with other circulatory complications; I87.2 Venous insufficiency (chronic) (peripheral); R60.0 Localized edema; E11.40 Type 2 diabetes mellitus with diabetic neuropathy, unspecified; E11.22 Type 2 diabetes mellitus with diabetic chronic kidney disease; I12.9 Hypertensive chronic kidney disease with stage 1 through stage 4 chronic kidney disease, or unspecified chronic kidney disease; N18.9 Chronic kidney disease, unspecified; Z89.412 Acquired absence of left great toe | CPT/HCPCS: G0463 ==

== ENCOUNTER 2021-08-31 09:34 | Emergency (ER) | payer OTHER ==
[~2021-08-31] VITALS: Ht 185.4 cm; Wt 61.2 kg
[~2021-08-31 09:34] MED LIST changes: -LOSA25 PO
[2021-08-31 10:13] LABS: BASOPHILS ABSOLUTE AUTO 0.05 K/mm3 (0.00-0.23); BASOPHILS PERCENT AUTO 1 % (0-2); EOSINOPHILS PERCENT AUTO 3 % (0-6); Hematocrit 29.2 % (37.0-53.0); Hemoglobin 9.7 g/dL (13.5-17.5); IMMATURE GRAN ABSOLUTE AUTO 0.02 K/mm3 (0.00-0.10); IMMATURE GRAN PERCENT AUTO 0 % (0-1); LYMPHOCYTES ABSOLUTE AUTO 2.07 K/mm3 (0.84-5.20); LYMPHOCYTES PERCENT AUTO 29 % (21-46); MONOCYTES PERCENT AUTO 7 % (4-13); Mean Corpuscular HGB 31.3 pg (26.0-34.0); Mean Corpuscular HGB Conc 33.2 g/dL (31.5-36.5); Mean Corpuscular Volume 94 fL (80-100); Mean Platelet Volume 10.4 fL (9.1-12.4); NEUTROPHILS ABSOLUTE AUTO 4.36 K/mm3 (1.96-9.15); NEUTROPHILS PERCENT AUTO 61 % (41-73); Platelet Count 259 K/mm3 (150-400); RDW Coefficient Variation 13.4 % (11.7-14.2); RDW Standard Deviation 46.9 fL (35.1-46.3)
[2021-08-31 10:19] LABS: Creatinine, Blood 1.59 mg/dL (0.60-1.20); Potassium, Blood 4.4 mmol/L (3.5-5.5)
[2021-08-31] MEDS ORDERED: METF500 PO (10:34)
[2021-08-31] MEDS ORDERED: TRAM50 PO (10:36)
[2021-08-31] MEDS ORDERED: CATAPRES0.2 M1 PO (10:38)
--- NOTE | 2021-08-31 10:53 | NUR ---
ED Palliative Care Consult Spoke with Dr Ken and discussed case. Pt to the ED with chest pain. Pt was scheduled with a new PCP today and office sent him to ED due to CP. Pt has history of HTN, DM, Diabetic Neuropathy, Depression, CKD, and BPH. Pt tearful and is expressing concerns regarding his quality of life. Pt resting on gurney upon arrival. Pt intermittently tearful. Offered therapeutic listening and validated concerns. Pt reports 7/10 pain from his feet to his neck. Pt does report experiencing anxiety and depression. Pt reports difficulty with getting dressed and states being a chore to get dressed. Pt's left hand appears to be contracted and reports PCP has not addressed this. Instructed on the importance of advocating for self and requesting this concern be addressed with PCP. Pt does report receiving caregiver support 2 hours a day, 5 days a week. Discussed considering anti depressant to assist with mood and pain. Discussed consideration of canceling as well. Pt is open to these suggestions. Spoke with ED Interior Design Instructor Evaristo and discussed case. Evaristo will visit with Pt and provide resources. Spoke with Dr Ken and she will consider antidepressant. Palliative Care will remain available.
== END 2021-08-31 16:25 | disposition home or self-care (01) ==
LOC: ER 09:34
PROVIDERS: Student in an Organized Health Care Education/Training Program
DX: R07.9 Chest pain, unspecified (principal); I12.9 Hypertensive chronic kidney disease with stage 1 through stage 4 chronic kidney disease, or unspecified chronic kidney disease; E11.22 Type 2 diabetes mellitus with diabetic chronic kidney disease; N18.9 Chronic kidney disease, unspecified; D63.1 Anemia in chronic kidney disease; E11.40 Type 2 diabetes mellitus with diabetic neuropathy, unspecified; F32.A Depression, unspecified; Z88.8 Allergy status to other drugs, medicaments and biological substances; Z79.82 Long term (current) use of aspirin; Z79.4 Long term (current) use of insulin; Z79.899 Other long term (current) drug therapy; Z73.6 Limitation of activities due to disability; Z74.1 Need for assistance with personal care; Z89.422 Acquired absence of other left toe(s)
CPT/HCPCS: 71045; 71260; 80048; 84484; 85025; 85379; 93005; 93010; 93971; 99285-25; A9270; Q9967

== ENCOUNTER 2021-09-11 02:29 | Day surgery (SDC) | payer OTHER ==
[~2021-09-11 02:29] MED LIST changes: +CATAPRES0.2 M1 PO; +METF500 PO
== END 2021-09-11 23:40 | disposition home or self-care (01) ==
LOC: WOUND 02:29
DX: E11.621 Type 2 diabetes mellitus with foot ulcer (principal); L97.519 Non-pressure chronic ulcer of other part of right foot with unspecified severity; L97.529 Non-pressure chronic ulcer of other part of left foot with unspecified severity; E11.622 Type 2 diabetes mellitus with other skin ulcer; E11.51 Type 2 diabetes mellitus with diabetic peripheral angiopathy without gangrene; E11.59 Type 2 diabetes mellitus with other circulatory complications; I87.2 Venous insufficiency (chronic) (peripheral); R60.0 Localized edema; S91.105D Unspecified open wound of left lesser toe(s) without damage to nail, subsequent encounter; S91.104D Unspecified open wound of right lesser toe(s) without damage to nail, subsequent encounter; M19.042 Primary osteoarthritis, left hand; M19.041 Primary osteoarthritis, right hand
CPT/HCPCS: G0463

== ENCOUNTER 2021-09-25 08:00 | Day surgery (SDC) | payer OTHER | END 2021-09-25 23:59 | disposition home or self-care (01) | LOC: WOUND 08:00 | DX: E11.621 Type 2 diabetes mellitus with foot ulcer (principal); L97.519 Non-pressure chronic ulcer of other part of right foot with unspecified severity; L97.529 Non-pressure chronic ulcer of other part of left foot with unspecified severity; E11.51 Type 2 diabetes mellitus with diabetic peripheral angiopathy without gangrene; I87.2 Venous insufficiency (chronic) (peripheral); Z89.412 Acquired absence of left great toe | CPT/HCPCS: G0463 ==

== ENCOUNTER 2021-10-08 10:29 | Day surgery (SDC) | payer OTHER ==
[~2021-10-08] VITALS: Ht 185.4 cm; Wt 66.7 kg
[~2021-10-08 10:29] MED LIST changes: +BASAGLAR K100 UNIT/3 SC; +GABA800 PO; +HYDCHL25 PO; +MELO7.5 PO
--- NOTE | 2021-10-08 11:05 | NUR ---
PATIENT BROUGHT BACK AND UNDRESSED SELF, CHANGED INTO GOWN. PIV STARTED TO THE RIGHT AC AND LABS DRAWN. LAB PERSONNEL HERE AND STAT LABS SENT TO THE LAB. ADMISSION ASSESSMENT PERFORMED. MONITOR APPLIED AND VVS GAINED. PATIENT PREPPED FOR PROCEDURE.
[2021-10-08 11:15] LABS: BASOPHILS ABSOLUTE AUTO 0.04 K/mm3 (0.00-0.23); BASOPHILS PERCENT AUTO 1 % (0-2); EOSINOPHILS ABSOLUTE AUTO 0.11 K/mm3 (0.00-0.68); EOSINOPHILS PERCENT AUTO 2 % (0-6); Hematocrit 32.1 % (37.0-53.0); Hemoglobin 10.7 g/dL (13.5-17.5); IMMATURE GRAN ABSOLUTE AUTO 0.02 K/mm3 (0.00-0.10); IMMATURE GRAN PERCENT AUTO 0 % (0-1); LYMPHOCYTES ABSOLUTE AUTO 1.71 K/mm3 (0.84-5.20); LYMPHOCYTES PERCENT AUTO 30 % (21-46); MONOCYTES ABSOLUTE AUTO 0.48 K/mm3 (0.16-1.47); MONOCYTES PERCENT AUTO 8 % (4-13); Mean Corpuscular HGB 31.7 pg (26.0-34.0); Mean Corpuscular HGB Conc 33.3 g/dL (31.5-36.5); Mean Corpuscular Volume 95 fL (80-100); Mean Platelet Volume 9.6 fL (9.1-12.4); NEUTROPHILS ABSOLUTE AUTO 3.35 K/mm3 (1.96-9.15); NEUTROPHILS PERCENT AUTO 59 % (41-73); Platelet Count 338 K/mm3 (150-400); RDW Coefficient Variation 13.2 % (11.7-14.2); RDW Standard Deviation 46.6 fL (35.1-46.3); Red Blood Cell Count 3.38 M/mm3 (4.30-5.90); White Blood Cell Count 5.71 K/mm3 (4.00-11.30)
[2021-10-08] MEDS ORDERED: DOCU100 PO (11:18)
[2021-10-08] MEDS ORDERED: CITALOPRAM HBR10 MG PO (11:19)
[2021-10-08] MEDS ORDERED: ATOR40TA PO (11:20)
[2021-10-08] MEDS ORDERED: METF500 PO (11:23)
[2021-10-08 11:28] LABS: International Normalized Ratio 0.94; Prothrombin Time Results 9.9 Sec (9.7-11.5)
[2021-10-08 11:29] LABS: Bun/Creatinine Ratio 20.8 (12.0-20.0); Calcium, Blood 8.7 mg/dL (8.5-10.1); Creatinine, Blood 1.25 mg/dL (0.60-1.20); Potassium, Blood 4.7 mmol/L (3.5-5.5)
--- NOTE | 2021-10-08 15:27 | NUR ---
PATIENT RETURNED FROM THE CATHLAB WITH RIGHT GROIN ANGIOSEAL. DRESSING CDI. PULSES BILATERAL DOPPLER. PATIENT PLACED ON THE MONITOR AND CALL LIGHT IN REACH. CHECKED BLOOD GLUCOSE 338. PATIENT DENIES PAIN. VVS.
--- NOTE | 2021-10-08 16:58 | NUR ---
LUNCH TRAY SET UP FOR PATIENT, HOB UP 30 DEGREES. RIGHT GROIN UNCHANGED. VVS.
--- NOTE | 2021-10-08 17:18 | NUR ---
PIV REMOVED, CATH TIP INTACT. PRESSURE DRESSING APPLIED. PATIENT FINISHING COFFEE AFTER LUNCH MEAL. SITTING UP IN THE BED. VVS. RIGHT GROIN STABLE.
--- NOTE | 2021-10-08 17:32 | NUR ---
PATIENT TRANSPORTATION ARRANGEMENTS VERIFIED ADN WILL BE HERE AT 1800 AT THE NORTH ENTRANCE. AMBULANCE SERVICE.
--- NOTE | 2021-10-08 17:33 | NUR ---
PATIENT ASSSITED TO SITTING ON THE SIDE OF THE BED. OFF THE MONITOR. ASSISTED WITH DRESSING. REVIEWED DISCHARGE INSTRUCTIONS AND SIGNATURES OBTAINED/COPIES GIVEN TO THE PATIENT WITH A RETURN APPOINTMENT ON October FOR PROCEDURE ON THE RIGHT LEG. RIGHT GROIN SITE UNCHANGED. CDI. NO HEMATOMA, NO BLEEDING.
--- NOTE | 2021-10-08 17:56 | NUR ---
PATIENT DISCHARGED VIA WHEELCHAIR TO THE AMBULANCE SERVICE TO HOME WITH INSTRUCTIONS. ALL QUESTIONS ANSWERED.
== END 2021-10-08 18:00 | disposition home or self-care (01) ==
LOC: MHTC 10:29
PROVIDERS: Radiology Diagnostic Radiology
DX: E11.51 Type 2 diabetes mellitus with diabetic peripheral angiopathy without gangrene (principal); I70.213 Atherosclerosis of native arteries of extremities with intermittent claudication, bilateral legs; I12.9 Hypertensive chronic kidney disease with stage 1 through stage 4 chronic kidney disease, or unspecified chronic kidney disease; N18.30 Chronic kidney disease, stage 3 unspecified; Z87.891 Personal history of nicotine dependence; Z88.8 Allergy status to other drugs, medicaments and biological substances
CPT/HCPCS: 76937; 80048; 85025; 85347; 85610; 99152; 99153; A9270; C1725; C1760; C1769; C1876; C1887; C1894; J0360; J1644; J2250; J3010; J7030; J7040; Q9967

== ENCOUNTER 2021-10-16 01:26 | Day surgery (SDC) | payer OTHER ==
[~2021-10-16 01:26] MED LIST changes: +CITALOPRAM HBR10 MG PO
== END 2021-10-16 23:48 | disposition home or self-care (01) ==
LOC: WOUND 01:26
DX: E11.621 Type 2 diabetes mellitus with foot ulcer (principal); L97.512 Non-pressure chronic ulcer of other part of right foot with fat layer exposed; L97.528 Non-pressure chronic ulcer of other part of left foot with other specified severity; E11.622 Type 2 diabetes mellitus with other skin ulcer; E11.59 Type 2 diabetes mellitus with other circulatory complications; E11.51 Type 2 diabetes mellitus with diabetic peripheral angiopathy without gangrene; I73.9 Peripheral vascular disease, unspecified; I87.2 Venous insufficiency (chronic) (peripheral); R60.0 Localized edema
CPT/HCPCS: G0463

== ENCOUNTER 2021-10-29 10:23 | Day surgery (SDC) | payer OTHER ==
[~2021-10-29] VITALS: Ht 185.4 cm; Wt 67.0 kg
--- NOTE | 2021-10-29 14:59 | NUR ---
pt to recovery room from lab.
--- NOTE | 2021-10-29 16:40 | NUR ---
PT RESTING IN BED. NO EVIDENCE OF BLEEDING OR HEMATOME NOTED TO FEMORAL SITE. SITE SOFT AND NON-TENDER PER PT. PT A&Ox4. PT GIVEN LUNCH TRAY. CALL LIGHT W/ IN REACH.
--- NOTE | 2021-10-29 16:59 | NUR ---
PT CONTINUES TO BE HYPERTENSIVE. DR NAQVI CALLED AND MESSAGE LEFT.
--- NOTE | 2021-10-29 17:07 | NUR ---
PT MEDICATED W/ 10MG HYDRALAZINE PER DR MOREIRA.
[2021-10-29] MEDS ORDERED: AMLO5 PO (17:09)
--- NOTE | 2021-10-29 18:01 | NUR ---
PT LAST BP 118/93. PT DENIES ANY COMPLAINTS AT THIS TIME. FEMORAL SITE SOFT AND NON-TENDER. NO BLEEDING NOTED. DR NAQVI MADE AWARE OF BP AND PT STATUS. DR NAQVI OK TO DC PT HOME. PT CHANGED INTO CLOTHES. IV PULLED BY KAYLYNN LACY. PT GIVEN DC INSTRUCTIONS AND VERBALZIED UNDERSTANDING. PT TAKEN TO PARKING LOT VIA . MEDICAL TRANSPORT TO TAKE PT HOME.
== END 2021-10-29 18:00 | disposition home or self-care (01) ==
LOC: MHTC 10:23
DX: E11.51 Type 2 diabetes mellitus with diabetic peripheral angiopathy without gangrene (principal); I70.213 Atherosclerosis of native arteries of extremities with intermittent claudication, bilateral legs; E78.5 Hyperlipidemia, unspecified; I12.9 Hypertensive chronic kidney disease with stage 1 through stage 4 chronic kidney disease, or unspecified chronic kidney disease; E11.22 Type 2 diabetes mellitus with diabetic chronic kidney disease; N18.30 Chronic kidney disease, stage 3 unspecified; E11.40 Type 2 diabetes mellitus with diabetic neuropathy, unspecified; Z88.8 Allergy status to other drugs, medicaments and biological substances; Z79.4 Long term (current) use of insulin; Z79.82 Long term (current) use of aspirin; Z99.3 Dependence on wheelchair; Z87.891 Personal history of nicotine dependence
CPT/HCPCS: 37229; 37232; 75625; 75716; 75774; 76937; 82947; 99152; 99153; A9270; C1714; C1725; C1760; C1769; C1887; C1894; J0360; J1644; J2250; J3010; J7030; J7040; Q9967

== ENCOUNTER 2021-10-30 03:06 | Day surgery (SDC) | payer OTHER | END 2021-10-30 23:32 | disposition home or self-care (01) | LOC: WOUND 03:06 | DX: E11.621 Type 2 diabetes mellitus with foot ulcer (principal); L97.512 Non-pressure chronic ulcer of other part of right foot with fat layer exposed; L97.529 Non-pressure chronic ulcer of other part of left foot with unspecified severity; E11.622 Type 2 diabetes mellitus with other skin ulcer; E11.59 Type 2 diabetes mellitus with other circulatory complications; E11.51 Type 2 diabetes mellitus with diabetic peripheral angiopathy without gangrene; I87.2 Venous insufficiency (chronic) (peripheral); R60.0 Localized edema; S91.105D Unspecified open wound of left lesser toe(s) without damage to nail, subsequent encounter; S91.104D Unspecified open wound of right lesser toe(s) without damage to nail, subsequent encounter; X58.XXXD Exposure to other specified factors, subsequent encounter | CPT/HCPCS: G0463 ==

== ENCOUNTER → 2021-11-08 | Outpatient (CLI) | payer OTHER ==
[2021-11-08 14:47] LABS: BASOPHILS ABSOLUTE AUTO 0.07 K/mm3 (0.00-0.23); BASOPHILS PERCENT AUTO 1 % (0-2); EOSINOPHILS ABSOLUTE AUTO 0.08 K/mm3 (0.00-0.68); EOSINOPHILS PERCENT AUTO 1 % (0-6); Hematocrit 30.2 % (37.0-53.0); Hemoglobin 9.7 g/dL (13.5-17.5); IMMATURE GRAN ABSOLUTE AUTO 0.09 K/mm3 (0.00-0.10); IMMATURE GRAN PERCENT AUTO 1 % (0-1); LYMPHOCYTES ABSOLUTE AUTO 1.66 K/mm3 (0.84-5.20); LYMPHOCYTES PERCENT AUTO 26 % (21-46); MONOCYTES ABSOLUTE AUTO 0.51 K/mm3 (0.16-1.47); MONOCYTES PERCENT AUTO 8 % (4-13); Mean Corpuscular HGB 31.8 pg (26.0-34.0); Mean Corpuscular HGB Conc 32.1 g/dL (31.5-36.5); Mean Corpuscular Volume 99 fL (80-100); Mean Platelet Volume 10.2 fL (9.1-12.4); NEUTROPHILS ABSOLUTE AUTO 4.04 K/mm3 (1.96-9.15); NEUTROPHILS PERCENT AUTO 63 % (41-73); Platelet Count 326 K/mm3 (150-400); RDW Coefficient Variation 13.6 % (11.7-14.2); RDW Standard Deviation 49.8 fL (35.1-46.3); Red Blood Cell Count 3.05 M/mm3 (4.30-5.90); White Blood Cell Count 6.45 K/mm3 (4.00-11.30)
[2021-11-08 14:55] LABS: Percent Saturation 16.1 % (20.0-50.0)
[2021-11-08 15:13] LABS: Albumin, Blood 2.6 g/dL (3.4-5.0); Albumin/Globulin Ratio 0.9 (0.8-1.8); Bilirubin, Total 0.1 mg/dL (0.1-1.0); Bun/Creatinine Ratio 33.3 (12.0-20.0); Calcium, Blood 8.6 mg/dL (8.5-10.1); Creatinine, Blood 1.32 mg/dL (0.60-1.20); Potassium, Blood 4.8 mmol/L (3.5-5.5); Total Protein, Blood 5.6 g/dL (6.4-8.2)
== END | disposition home or self-care (01) ==
LOC: LAB 11:44 → LAB SHORT 11:44
PROVIDERS: Internal Medicine Hematology & Oncology
DX: D64.9 Anemia, unspecified (principal); E53.8 Deficiency of other specified B group vitamins
CPT/HCPCS: 80053; 82607; 82728; 82746; 83540; 83550; 84100; 85025

== ENCOUNTER 2021-11-13 08:00 | Day surgery (SDC) | payer OTHER | END 2021-11-13 23:59 | disposition home or self-care (01) | LOC: WOUND 08:00 | DX: E11.621 Type 2 diabetes mellitus with foot ulcer (principal); E11.622 Type 2 diabetes mellitus with other skin ulcer; L97.519 Non-pressure chronic ulcer of other part of right foot with unspecified severity; L97.529 Non-pressure chronic ulcer of other part of left foot with unspecified severity; E11.51 Type 2 diabetes mellitus with diabetic peripheral angiopathy without gangrene; I87.2 Venous insufficiency (chronic) (peripheral); R60.0 Localized edema | CPT/HCPCS: A9270; G0463 ==

== ENCOUNTER 2021-11-27 01:12 | Day surgery (SDC) | payer OTHER | END 2021-11-27 23:24 | disposition home or self-care (01) | LOC: WOUND 01:12 | DX: E11.621 Type 2 diabetes mellitus with foot ulcer (principal); E11.622 Type 2 diabetes mellitus with other skin ulcer; E11.51 Type 2 diabetes mellitus with diabetic peripheral angiopathy without gangrene; R60.0 Localized edema; L97.512 Non-pressure chronic ulcer of other part of right foot with fat layer exposed; L97.522 Non-pressure chronic ulcer of other part of left foot with fat layer exposed | CPT/HCPCS: G0463 ==

== ENCOUNTER 2021-12-19 01:53 | Day surgery (SDC) | payer OTHER | END 2021-12-19 22:46 | disposition home or self-care (01) | LOC: WOUND 01:53 | DX: E11.621 Type 2 diabetes mellitus with foot ulcer (principal); L97.529 Non-pressure chronic ulcer of other part of left foot with unspecified severity; E11.622 Type 2 diabetes mellitus with other skin ulcer; E11.59 Type 2 diabetes mellitus with other circulatory complications; E11.51 Type 2 diabetes mellitus with diabetic peripheral angiopathy without gangrene; I87.2 Venous insufficiency (chronic) (peripheral); R60.0 Localized edema; S91.105D Unspecified open wound of left lesser toe(s) without damage to nail, subsequent encounter; S91.104D Unspecified open wound of right lesser toe(s) without damage to nail, subsequent encounter; X58.XXXD Exposure to other specified factors, subsequent encounter; I12.9 Hypertensive chronic kidney disease with stage 1 through stage 4 chronic kidney disease, or unspecified chronic kidney disease; N18.9 Chronic kidney disease, unspecified; E11.40 Type 2 diabetes mellitus with diabetic neuropathy, unspecified | CPT/HCPCS: G0463 ==

== ENCOUNTER 2022-01-16 01:23 | Day surgery (SDC) | payer OTHER | END 2022-01-16 23:36 | disposition home or self-care (01) | LOC: WOUND 01:23 | DX: Z09 Encounter for follow-up examination after completed treatment for conditions other than malignant neoplasm (principal); Z87.2 Personal history of diseases of the skin and subcutaneous tissue; E11.40 Type 2 diabetes mellitus with diabetic neuropathy, unspecified; E11.22 Type 2 diabetes mellitus with diabetic chronic kidney disease; I12.9 Hypertensive chronic kidney disease with stage 1 through stage 4 chronic kidney disease, or unspecified chronic kidney disease; N18.9 Chronic kidney disease, unspecified | CPT/HCPCS: G0463 ==

== ENCOUNTER → 2022-01-18 | Outpatient (CLI) | payer OTHER ==
[2022-01-18 15:37] LABS: Ferritin, Serum 87 ng/mL (26-388); Iron Serum 62 ug/dL (65-175); Percent Saturation 22.6 % (20.0-50.0); Total Iron Binding Capacity 274 ug/dL (250-450)
[2022-01-18 15:38] LABS: Alanine Aminotransfer (ALT/SGP 39 U/L (12-78); Albumin, Blood 2.7 g/dL (3.4-5.0); Albumin/Globulin Ratio 1.1 (0.8-1.8); Alk Phos 71 U/L (50-136); Anion Gap 7 mmol/L (6-16); Aspartate Aminotrans (AST/SGOT 11 U/L (12-37); Bilirubin, Direct <0.1 mg/dL (0.0-0.3); Bilirubin, Indirect Unable to Calculate mg/dL (0.1-0.7); Bilirubin, Total 0.1 mg/dL (0.1-1.0); Blood Urea Nitrogen 54 mg/dL (8-24); Bun/Creatinine Ratio 34.4 (12.0-20.0); CO2, Blood 25 mmol/L (21-32); Calcium, Blood 8.5 mg/dL (8.5-10.1); Chloride, Blood 108 mmol/L (98-108); Creatinine, Blood 1.57 mg/dL (0.60-1.20); Globulin, Blood 2.5 g/dL (2.2-4.0); Glomerular Filtration Rate 50 (60-); Glucose, Blood 235 mg/dL (70-99); Sodium, Blood 140 mmol/L (136-145); Total Protein, Blood 5.2 g/dL (6.4-8.2)
== END | disposition home or self-care (01) ==
LOC: LAB SHORT 13:04 → LAB 13:04
PROVIDERS: Internal Medicine Hematology & Oncology
DX: D64.9 Anemia, unspecified (principal)
CPT/HCPCS: 80053; 82248; 82728; 83540; 83550

== ENCOUNTER → 2022-02-18 | Outpatient (CLI) | payer OTHER ==
[2022-02-18 17:36] LABS: Albumin, Blood 2.9 g/dL (3.4-5.0); Albumin/Globulin Ratio 1.1 (0.8-1.8); Bilirubin, Total 0.1 mg/dL (0.1-1.0); Bun/Creatinine Ratio 28.3 (12.0-20.0); Creatinine, Blood 1.8 mg/dL (0.60-1.20); Globulin, Blood 2.6 g/dL (2.2-4.0); Phosphorus, Blood 4.6 mg/dL (2.5-4.9); Total Protein, Blood 5.5 g/dL (6.4-8.2)
== END | disposition home or self-care (01) ==
LOC: LAB 10:37 → LAB SHORT 10:37
PROVIDERS: Internal Medicine Hematology & Oncology
DX: D50.0 Iron deficiency anemia secondary to blood loss (chronic) (principal)
CPT/HCPCS: 80053; 84100

== ENCOUNTER → 2022-03-21 | Outpatient (CLI) | payer OTHER ==
[2022-03-21 15:54] LABS: Percent Saturation 18.8 % (20.0-50.0)
== END | disposition home or self-care (01) ==
LOC: LAB 10:53 → LAB SHORT 10:53
PROVIDERS: Internal Medicine Hematology & Oncology
DX: D50.0 Iron deficiency anemia secondary to blood loss (chronic) (principal)
CPT/HCPCS: 82728; 83540; 83550

== ENCOUNTER → 2022-05-23 | Outpatient (CLI) | payer OTHER | END | disposition home or self-care (01) | LOC: LAB SHORT 14:00 | PROVIDERS: Internal Medicine Hematology & Oncology | DX: D50.0 Iron deficiency anemia secondary to blood loss (chronic) (principal) | CPT/HCPCS: 82728; 83540; 83550 ==

== ENCOUNTER 2022-06-12 07:44 | Day surgery (SDC) | payer OTHER ==
[~2022-06-12] VITALS: Ht 185.4 cm; Wt 60.0 kg
--- NOTE | 2022-06-12 08:55 | NUR ---
06/12/22 0855 MARYAN SOTO IN AT [phone] ARUNA IN AT [id number]
--- NOTE | 2022-06-12 10:26 | NUR ---
06/12/22 1026 EVITA COOPER PT WAITING FOR TRANSPORTION IN STEP [facility]
== END 2022-06-12 10:25 | disposition home or self-care (01) ==
LOC: ORSCSDS 07:44
PROVIDERS: Ophthalmology
PROC: 08DJ3ZZ Extraction of Right Lens, Percutaneous Approach (ICD-10-PCS; principal; 2022-06-12 09:30)
DX: H25.13 Age-related nuclear cataract, bilateral (principal); H21.81 Floppy iris syndrome; E78.5 Hyperlipidemia, unspecified; F41.8 Other specified anxiety disorders; I12.9 Hypertensive chronic kidney disease with stage 1 through stage 4 chronic kidney disease, or unspecified chronic kidney disease; N18.9 Chronic kidney disease, unspecified; E11.22 Type 2 diabetes mellitus with diabetic chronic kidney disease; Z79.84 Long term (current) use of oral hypoglycemic drugs; Z79.899 Other long term (current) drug therapy
CPT/HCPCS: 82947; J2001; J2250; J3010; J3301; J7040; V2632

== ENCOUNTER → 2022-07-25 | Outpatient (CLI) | payer OTHER ==
[2022-07-25 21:13] LABS: Percent Saturation 35.6 % (20.0-50.0)
== END | disposition home or self-care (01) ==
LOC: LAB SHORT 12:10 → LAB 12:10
PROVIDERS: Internal Medicine Hematology & Oncology
DX: D50.0 Iron deficiency anemia secondary to blood loss (chronic) (principal)
CPT/HCPCS: 82728; 83540; 83550

== ENCOUNTER 2022-08-21 06:51 | Day surgery (SDC) | payer OTHER ==
[~2022-08-21] VITALS: Ht 185.4 cm; Wt 57.2 kg
--- NOTE | 2022-08-21 09:56 | NUR ---
08/21/22 0956 Bj Toscano PT WAS HYPERTENSIVE IN STEP DOWN AND PRE-OP. HE REPORTED NOT TAKING BLOOD PRESSURE MEDICATION THIS MORNING. DR. TRIPP CONSULTED. PT WAS ADVISED TO TAKE MEDICATION AND MONITOR BLOOD PRESSURE AT HOME, PER DR. TRIPP'S INSTRUCTIONS. PT OKAY TO DISCHARGE, PER DR. TRIPP.
== END 2022-08-21 09:52 | disposition home or self-care (01) ==
LOC: ORSCSDS 06:51
PROVIDERS: Ophthalmology
PROC: 08RK3JZ Replacement of Left Lens with Synthetic Substitute, Percutaneous Approach (ICD-10-PCS; principal; 2022-08-21 09:00)
DX: E11.36 Type 2 diabetes mellitus with diabetic cataract (principal); H25.12 Age-related nuclear cataract, left eye; H21.81 Floppy iris syndrome; Z96.1 Presence of intraocular lens; I73.9 Peripheral vascular disease, unspecified; E78.5 Hyperlipidemia, unspecified; I10 Essential (primary) hypertension; N28.9 Disorder of kidney and ureter, unspecified; Z79.82 Long term (current) use of aspirin; Z79.84 Long term (current) use of oral hypoglycemic drugs; Z79.899 Other long term (current) drug therapy; F17.210 Nicotine dependence, cigarettes, uncomplicated
CPT/HCPCS: 82947; J2001; J2250; J3010; J3301; J7040; V2632

== ENCOUNTER 2022-08-29 09:47 | Emergency (ER) | payer OTHER ==
[~2022-08-29] VITALS: Ht 185.4 cm; Wt 65.8 kg
[2022-08-29] MEDS ORDERED: HYDACE10B PO (12:05)
[2022-08-29] MEDS ORDERED: CYCL10 PO (12:05)
[2022-08-29] MEDS ORDERED: DOC250 PO (12:05)
[2022-08-29] MEDS ORDERED: LIDO700A20 TOP (12:05)
== END 2022-08-29 13:15 | disposition home or self-care (01) ==
LOC: ER 09:47
DX: M48.56XA Collapsed vertebra, not elsewhere classified, lumbar region, initial encounter for fracture (principal); E11.9 Type 2 diabetes mellitus without complications; I10 Essential (primary) hypertension; E78.5 Hyperlipidemia, unspecified; Z88.8 Allergy status to other drugs, medicaments and biological substances; Z79.82 Long term (current) use of aspirin; Z79.899 Other long term (current) drug therapy; Z79.84 Long term (current) use of oral hypoglycemic drugs
CPT/HCPCS: 72100; 96374; 99284-25; A9270; J1885

== ENCOUNTER 2022-09-02 23:28 | Emergency (ER) | payer OTHER ==
[~2022-09-02] VITALS: Ht 185.4 cm; Wt 57.1 kg
[~2022-09-02 23:28] MED LIST changes: +CYCL10 PO; +DOC250 PO; +HYDACE10B PO
== END 2022-09-03 02:30 | disposition home or self-care (01) ==
LOC: ER 23:28
DX: S32.019A Unspecified fracture of first lumbar vertebra, initial encounter for closed fracture (principal); E11.9 Type 2 diabetes mellitus without complications; I10 Essential (primary) hypertension; W06.XXXA Fall from bed, initial encounter; Z87.891 Personal history of nicotine dependence
CPT/HCPCS: 99283; A9270

== ENCOUNTER 2022-09-06 10:37 | Emergency (ER) | payer OTHER ==
[~2022-09-06] VITALS: Ht 185.4 cm; Wt 59.0 kg
[2022-09-06] MEDS ORDERED: Norco 10-325 T1 EACH PO (11:27)
== END 2022-09-06 11:42 | disposition home or self-care (01) ==
LOC: ER 10:37
DX: S32.009D Unspecified fracture of unspecified lumbar vertebra, subsequent encounter for fracture with routine healing (principal); E11.51 Type 2 diabetes mellitus with diabetic peripheral angiopathy without gangrene; I73.9 Peripheral vascular disease, unspecified; E78.5 Hyperlipidemia, unspecified; I10 Essential (primary) hypertension; Z79.899 Other long term (current) drug therapy; Z79.82 Long term (current) use of aspirin; Z79.84 Long term (current) use of oral hypoglycemic drugs; Z88.8 Allergy status to other drugs, medicaments and biological substances
CPT/HCPCS: 99283; A9270